=== PATIENT | female | born 1955 | race Caucasian/White ===

== ENCOUNTER 2023-01-22 12:56 | Outpatient (OUT) | payer MEDICARE, OTHER, SELFPAY ==
--- NOTE | 2023-01-22 13:01 | MM_ITS ---
Patient Name: OSORIO ANN MR#: [id number] : 1955 Exam Date: 01/22/2023 Ordering Doctor: FELISHA CASILLAS RADIOLOGY REPORT PROCEDURE: MM TOMOSYNTHESIS SCREENING BI COMPARISON: MG MAMM SCREEN 3D JORGE CAD, 09/13/2020. MG MAMM SCREEN JORGE W CAD, 12/26/2017. MG MAMM SCREEN JORGE W CAD, 12/03/2016. MG MAMM SCREEN JORGE W CAD, 01/01/2013. INDICATIONS: Screening Calculator Name NCI Breast Cancer Risk Assessment Tool 5 Year Breast Cancer Risk 2.20% Lifetime Breast Cancer Risk 7.20% Personal Breast Cancer No Personal Ovarian Cancer No Treatments None Family Cancers None LOCATION: [facility] BREAST COMPOSITION: Heterogeneously dense,which may obscure small masses. FINDINGS: DIAGNOSTIC CATEGORY 2--BENIGN FINDING: RIGHT BREAST: No significant suspicious finding. Scattered benign-appearing calcifications are present. No significant change has occurred. LEFT BREAST: No significant suspicious finding. Scattered benign-appearing calcifications are present. No significant change has occurred. RECOMMENDATIONS: ROUTINE MAMMOGRAM AND CLINICAL EVALUATION IN 12 MONTHS. PLEASE NOTE: A NORMAL MAMMOGRAM DOES NOT EXCLUDE THE POSSIBILITY OF BREAST CANCER. A CLINICALLY SUSPICIOUS PALPABLE LUMP SHOULD BE BIOPSIED. Dictated by: Jorje Chacko M.D. on 01/24/2023 at 12:09 Approved by: Jorje Chacko M.D. on 01/24/2023 at 12:13
== END 2023-01-22 12:57 | disposition home or self-care (01) ==
LOC: MAMMO 12:56
PROVIDERS: PCP Student in an Organized Health Care Education/Training Program
DX: Z12.31 Encounter for screening mammogram for malignant neoplasm of breast (principal)
CPT/HCPCS: 77063; 77067

== ENCOUNTER 2024-06-24 08:05 | Outpatient (OUT) | payer MEDICARE, OTHER, SELFPAY ==
[2024-06-24 08:27] LABS: Basophils Percent Auto 0.5 % (0.2-2.0); Eosinophils Absolute Auto 0.1 10^3/uL (0.0-0.7); Eosinophils Percent Auto 1.1 % (0.9-7.0); Hematocrit 38.9 % (36.0-48.0); Hemoglobin 12.8 g/dL (12.0-16.0); Immature Granulocytes Abs Auto 0.01 10^3/uL (0.00-0.03); Immature Granulocytes Pct Auto 0.2 % (0.0-0.5); Lymphocytes Absolute Auto 1.7 10^3/uL (1.2-3.8); Lymphocytes Percent Auto 30.8 % (20.5-60.0); Mean Corpuscular HGB Conc 32.9 g/dL (29.9-35.2); Mean Corpuscular Hemoglobin 31.4 pg (26.7-34.0); Mean Corpuscular Volume 95.3 fL (81.0-99.0); Mean Platelet Volume 10.6 fL (9.5-13.5); Monocytes Absolute Auto 0.4 10^3/uL (0.3-0.8); Monocytes Percent Auto 6.8 % (1.7-12.0); Neutrophils Absolute Auto 3.4 10^3/uL (1.4-6.5); Neutrophils Percent Auto 60.6 % (43.0-75.0); Platelet Count 269 10^3/uL (150-450); Red Blood Count 4.08 10^6/uL (4.20-5.40); Red Cell Distribution Width 12.3 % (11.0-15.0); White Blood Count 5.6 10^3/uL (4.0-11.0)
[2024-06-24 08:57] LABS: Anion Gap 12.7; BUN Creatinine Ratio 12.5; Calcium 8.8 mg/dL (8.5-10.1); Carbon Dioxide 29.4 mmol/L (21.0-32.0); Chloride 106 mmol/L (98-107); Estimated GFR (African America >60 (>=60 mL/min/1.73m^2); Estimated GFR (Non-African Ame >60 (>=60 mL/min/1.73m^2); Glucose 106 mg/dL (74-106); Potassium 4.1 mmol/L (3.5-5.1); Sodium 144 mmol/L (136-145)
== END 2024-06-24 08:06 | disposition home or self-care (01) ==
PROVIDERS: PCP Student in an Organized Health Care Education/Training Program
DX: K62.9 Disease of anus and rectum, unspecified (principal)
CPT/HCPCS: 36415; 80048; 85025

== ENCOUNTER 2024-10-19 07:57 | Outpatient (OUT) | payer MEDICARE, OTHER, SELFPAY ==
--- OUTSIDE RECORDS SUMMARY | 2024-10-19 07:59 | XMS_ITS | Clinical Summary ---
Author Organization [facility] Address [address] [place] [address] Care Team Providers Care Health Communications Specialist Name Role Phone Ellen Barrett MD Primary Care Provider [phone] Ellen Barrett MD Unavailable [phone] Allergies Active Allergy Reactions Criticality Noted Date Comments Amoxicillin Diarrhea 12/26/2022 Aspirin 12/26/2022 Cefuroxime 12/26/2022 Other Reaction(s): Unknown Erythromycin Headache 12/26/2022 Lactose Intolerance (Gi) 12/26/2022 Other Reaction(s): Sensitivity Meperidine 12/26/2022 Midazolam 12/26/2022 Other 12/26/2022 Other Reaction(s): Sensitivity Medications predniSONE (Deltasone) 20 MG tabletIndicatio ns:Rib pain on right side 3 tablets for 3 days, then 2 tablets for 3 days, then 1 tablet for 3 days then stop 18 tablet 09/15/2024 Active tiZANidine (Zanaflex) 4 MG tabletIndicatio ns:Rib pain on right side Take 1 tablet (4 mg) by mouth every 8 (eight) hours if needed for muscle spasms 20 tablet 09/15/2024 Active sulfamethoxazol e-trimethoprim (Bactrim DS) 800-160 MG per tabletIndicatio ns:Positive urine culture Take 1 tablet by mouth in the morning and 1 tablet before bedtime. Do all this for 7 days. 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 12/26/2022 Post-void dribbling 12/26/2022 Encounters Date Type Department Care Team Description 09/22/2024 Results Follow-Up [place] [address] [place] [address] Lorena Trevino NP CBC and differential, Comprehensive metabolic panel, Urinalysis with microscopic (reflex culture if indicated), Additional followed-up results: 5 09/15/2024 12:40 PM EDT Office Visit [place] [address] [place] [address] Lorena Trevino NP Medicare annual wellness visit, subsequent (Primary Dx); Elevated blood pressure reading in office without diagnosis of hypertension; Right sided abdominal pain; Rib pain on right side; Other fatigue; Chills (without fever); Other problems related to lifestyle; BMI 29.0-29.9,adult; Overweight 09/15/2024 Bamboo flowsheet [place] [address] [place] [address] Lorena Trevino NP 09/15/2024 Travel from Last 3 Months Immunizations Immunization Administration Dates Next Due SARS-CoV-2, Unspecified 05/25/2021 Tdap 09/28/2018 Family History Medical History Relation Name Comments Fibromyalgia Brother Heart disease Father Hypertension Father Hypertension Mother Relation Name Status Comments Brother 1 brother Father Mother Social History Tobacco Use Types Packs/Day Years Used Date Smoking Tobacco: Never Smokeless Tobacco: Never Tobacco Cessation:Counseling Given: Not Answered Alcohol Use Standard Drinks/Week Comments Not Currently 0 (1 standard drink = 0.6 oz pur e alcohol) PHQ-2 Answer Date Recorded Patient Health Questionnaire-2 Score 0 09/15/2024 Comments No Sex and Gender Information Value Date Recorded Sex Assigned at Not on file Legal Sex Female 6:36 PM EDT Gender Identity Not on file Sexual Orientation Not on file Last Filed Vital Signs Vital Sign Reading Time Taken Comments Blood Pressure 150/80 09/15/2024 12:52 PM EDT Pulse 65 09/15/2024 12:52 PM EDT Temperature 37.1 C (98.7 F) 09/15/2024 12:52 PM EDT Respiratory Rate - - Oxygen Saturation 98% 09/15/2024 12:52 PM EDT Inhaled Oxygen Concentration - - Weight 77.6 kg (171 lb) 09/15/2024 12:52 PM EDT Height 162.6 cm (5' 4 ) 09/15/2024 12:52 PM EDT Body Mass Index 29.35 09/15/2024 12:52 PM EDT Plan of Treatment Health Maintenance Due Date Last Done Comments CT Colonography 1955 FIT 1955 FOBT 1955 Sigmoidoscopy 1955 Pneumococcal Vaccine: 65+ Ye ars (1 of 1 - PCV) 2004 Mammogram 01/25/2024 01/24/2023, 08/26, 12/26/2017, Additional history exists Influenza Vaccine (#1) 2024 Medicare Annual Wellness (AWV) 09/15/2025 0 09/15/2024, 12/26/2022, 12/19/2021, Additional history exists FIT-DNA 03/26/2027 03/26/2024, 10/26, 11/08/2020 Colonoscopy 07/21/2034 07/21/2024, 04/26, 05/15/2024, Additional history exists Colorectal Cancer Screening 07/21/2034 Procedures Procedure Name Priority Date/Time Associated Diagnosis Comments HCV NEG INTERP REFLEX Routine 09/15/2024 1:33 PM EDT URINE CULTURE, ROUTINE, REFLEX Routine 09/15/2024 1:33 PM EDT UR MICROSCOPIC REFLEX Routine 09/15/2024 1:33 PM EDT HCV ANTIBODY RFX TO QUANT PCR Routine 09/15/2024 1:33 PM EDT Other problems related to lifestyle LIPASE Routine 09/15/2024 1:33 PM EDT Right sided abdominal pain URINALYSIS WITH MICROSCOPIC (REFLEX CULTURE IF INDICATED) Routine 09/15/2024 1:33 PM EDT Right sided abdominal pain Other fatigue Chills (without fever) COMPREHENSIVE METABOLIC PANEL Routine 09/15/2024 1:33 PM EDT Right sided abdominal pain Other fatigue Chills (without fever) CBC (INCLUDES DIFF/PLT) Routine 09/15/2024 1:33 PM EDT Right sided abdominal pain Other fatigue Chills (without fever) HM COLONOSCOPY Routine 05/15/2024 4:18 PM EDT LAB COLOGUARD COLON CANCER SCREEN Routine 03/26/2024 9:00 AM EST Screening for colon cancer BI MAMMOGRAM SCREENING TOMOSYNTHESIS BILATERAL Routine 01/24/2023 4:44 PM EST Breast cancer screening by mammogram from Last 3 Months or Most Recently Relevant to Health Maintenance Results * (ABNORMAL) Ur Microscopic Reflex (09/15/2024 1:33 PM EDT) WBC Ur 6-10(A) 0 - 5 /hpf [facility] RBC Ur None seen 0 - 2 /hpf [facility] Epithelial Cells (non renal) Ur 0-10 0 - 10 /hpf [facility] Casts Ur None seen None seen /lpf [facility] Crystals Ur Present(A) N/A [facility] Crystal Type Ur Calcium Oxalate N/A [facility] Bacteria Ur None seen None seen/Few [facility] 09/15/2024 1:33 PM EDT 09/15/2024 Narrative [facility] - 09/20/2024 8:35 AM EDT Performed at: [address] [place] [id number] Drug And Alcohol Treatment Specialist: Franco Toribio PhD, Phone: [phone] Lorena A DonAlterGeoarmandor NUCLEAR POWERPLANT SUPERVISOR LAB URINE ORDERABLES Fi nal Result Performing Organization Address City/[facility] Co de Phone Number [facility] * HCV Neg Interp Reflex (09/15/2024 1:33 PM EDT) HCV Neg Interp Comment [facility] Comment: Not infected with HCV unless early or acute infection is suspected (which may be delayed in an immunocompromised individual), or other evidence exists to indicate HCV infection. 09/15/2024 1:33 PM EDT 09/15/2024 Narrative [facility] - 09/20/2024 8:35 AM EDT Performed at: [address] [place] [id number] Drug And Alcohol Treatment Specialist: Franco Toribio PhD, Phone: [phone] Lorenasurekha Trevino NUCLEAR POWERPLANT SUPERVISOR LAB BLOOD ORDERABLES Fi nal Result Performing Organization Address [facility] Co de Phone Number [facility] * (ABNORMAL) Urine Culture, Routine, Reflex (09/15/2024 1:33 PM EDT) Urine Cult Rt Status Final report(A) [facility] Ur Cult 1 Klebsiella pneumoniae(A) [facility] Comment: Cefazolin with an DUANE <=16 predicts susceptibility to the oral agents cefaclor, cefdinir, cefpodoxime, cefprozil, cefuroxime, cephalexin, and loracarbef when used for therapy of uncomplicated urinary tract infections due to E. coli, Klebsiella pneumoniae, and Proteus mirabilis. Greater than 100,000 colony forming units per mL Ur Cult Suscep Comment [facility] Comment: S = Susceptible; I = Intermediate; R = Resistant P = Positive; N = Negative MICS are expressed in micrograms per mL Antibiotic RSLT#1 RSLT#2 RSLT#3 RSLT#4 Amoxicillin/Clavulanic Acid S Ampicillin R Cefazolin S Cefepime S Cefoxitin S Cefpodoxime S Ceftriaxone S Ciprofloxacin S Ertapenem S Gentamicin S Levofloxacin S Meropenem S Nitrofurantoin S Piperacillin/Tazobactam S Tetracycline R Tobramycin S Trimethoprim/Sulfa S 09/15/2024 1:33 PM EDT 09/15/2024 Narrative [facility] - 09/20/2024 8:35 AM EDT Performed at: [address] [place] [id number] Drug And Alcohol Treatment Specialist: Franco Toribio PhD, Phone: [phone] Lorena Trevino NUCLEAR POWERPLANT SUPERVISOR LAB URINE ORDERABLES Fi nal Result Performing Organization Address [facility] Co de Phone Number [facility] * Urinalysis with microscopic (reflex culture if indicated) (09/15/2024 1:33 PM EDT) Pathologist [facility] Specific [place] Urine 1.022 1.005 - 1.030 [facility] pH Urine 6.5 5.0 - 7.5 [facility] Color Urine Yellow Yellow [facility] Appearance Urine Clear Clear [facility] WBC Esterase Urine Negative Negative [facility] Protein Urine Trace Negative/Tra ce [facility] Glucose Urine Negative Negative [facility] Ketones Urine Negative Negative [facility] Occult Blood Urine Negative Negative [facility] Bilirubin Urine Negative Negative [facility] Urobilinogen,Se mi-Qn Urine 0.2 0.2 - 1.0 mg/dL [facility] Nitrite Urine Negative Negative [facility] Ur Microscopic Comment [facility] Comment:Microscopic follows if indicated. Micro Exam See below: [facility] Comment:Microscopic was sukhjinder cated and was performed. Urinalysis Reflex Comment [facility] Comment:This specimen has re flexed to a Urine Culture. Urine Urine specimen obtained by clean catch procedure / Unknown 09/15/2024 1:33 PM EDT 09/15/2024 Narrative [facility] - 09/20/2024 8:35 AM EDT Performed at: [address] [place] [id number] Drug And Alcohol Treatment Specialist: Franco Toribio PhD, Phone: [phone] Lorena Trevino NUCLEAR POWERPLANT SUPERVISOR LAB URINE ORDERABLES Fi nal Result [facility] * Hcv antibody rfx to quant pcr (09/15/2024 1:33 PM EDT) Pathologist [facility] HCV Ab Non Reactive Non Reactive [facility] Blood Venous blood specimen / Unknown 09/15/2024 1:33 PM EDT 09/15/2024 Narrative [facility] - 09/20/2024 8:35 AM EDT Performed at: 01 - [facility] [id number] Drug And Alcohol Treatment Specialist: Franco Toribio PhD, Phone: [phone] Lorena Trevino NUCLEAR POWERPLANT SUPERVISOR LAB BLOOD ORDERABLES Fi nal Result [facility] * (ABNORMAL) CBC and differential (09/15/2024 1:33 PM EDT) [facility] WBC 6.9 3.4 - 10.8 x10E3/uL [facility] RBC 3.96 3.77 - 5.28 x10E6/uL [facility] Hgb 13.3 11.1 - 15.9 g/dL [facility] Hct 39.2 34.0 - 46.6 % [facility] MCV 99(H) 79 - 97 fL [facility] MCH 33.6(H) 26.6 - 33.0 pg [facility] MCHC 33.9 31.5 - 35.7 g/dL [facility] RDW 12.9 11.7 - 15.4 % [facility] Platelets 272 150 - 450 x10E3/uL [facility] Neutrophils 65 Not Estab. % [facility] Lymphs 27 Not Estab. % [facility] Monocytes 7 Not Estab. % [facility] Eos 1 Not Estab. % [facility] Basos 0 Not Estab. % [facility] Neutrophils Abs 4.5 1.4 - 7.0 x10E3/uL [facility] Lymphs Abs 1.9 0.7 - 3.1 x10E3/uL [facility] MonocytesAbs 0.5 0.1 - 0.9 x10E3/uL [facility] Eos Abs 0.1 0.0 - 0.4 x10E3/uL [facility] Baso Abs 0.0 0.0 - 0.2 x10E3/uL [facility] Immature Granulocytes 0 Not Estab. % [facility] Immature Grans Abs 0.0 0.0 - 0.1 x10E3/uL [facility] Blood Venous blood specimen / Unknown 09/15/2024 1:33 PM EDT 09/15/2024 Narrative [facility] - 09/20/2024 8:35 AM EDT Performed at: [address] [place] [id number] Drug And Alcohol Treatment Specialist: Franco Toribio PhD, Phone: [phone] Lorena Kevin Trevino LAB BLOOD ORDERABLES Fi nal Result Performing Organization Address [facility] de Phone Number [facility] * Lipase (09/15/2024 1:33 PM EDT) Pathologist [facility] LIPASE 45 14 - 72 U/L [facility] Blood Venous blood specimen / Unknown 09/15/2024 1:33 PM EDT 09/15/2024 Narrative [facility] - 09/20/2024 8:35 AM EDT Performed at: [address] [place] [id number] Drug And Alcohol Treatment Specialist: Franco Toribio PhD, Phone: [phone] Lorena Trevino NUCLEAR POWERPLANT SUPERVISOR LAB BLOOD ORDERABLES Fi nal Result Performing Organization Address [facility] Co de Phone Number [facility] * (ABNORMAL) Comprehensive metabolic panel (09/15/2024 1:33 PM EDT) Glucose CANCELED mg/dL [facility] Comment: Test not performed. Serum was in contact with cells when received which will make the result inaccurate. Result canceled by the ancillary. BUN 13 8 - 27 mg/dL [facility] Creat 0.77 0.57 - 1.00 mg/dL [facility] EGFR 83 >59 mL/min/1.7 3 [facility] BUN/Creat Ratio 17 12 - 28 [facility] Sodium 144 134 - 144 mmol/L [facility] Potassium CANCELED mmol/L [facility] Comment: Test not performed. Serum was in contact with cells when received which will make the result inaccurate. Result canceled by the ancillary. Chloride 103 96 - 106 mmol/L [facility] Carbon Dioxide 19(L) 20 - 29 mmol/L [facility] Calcium 9.6 8.7 - 10.3 mg/dL [facility] Protein Total 6.9 6.0 - 8.5 g/dL [facility] Albumin 4.5 3.9 - 4.9 g/dL [facility] Globulin Total 2.4 1.5 - 4.5 g/dL [facility] Bili Total 0.3 0.0 - 1.2 mg/dL [facility] Alk Phosphatase 85 44 - 121 IU/L [facility] AST 18 0 - 40 IU/L [facility] ALT 14 0 - 32 IU/L [facility] Blood Venous blood specimen / Unknown 09/15/2024 1:33 PM EDT 09/15/2024 Narrative [facility] - 09/20/2024 8:35 AM EDT Performed at: 01 - [address] [id number] Drug And Alcohol Treatment Specialist: Franco Toribio PhD, Phone: [phone] Lorena Trevino NUCLEAR POWERPLANT SUPERVISOR LAB BLOOD ORDERABLES Ed ited Result - Final [facility] * Hm Colonoscopy (05/15/2024 4:18 PM EDT) Anatomical Region Laterality Modality Other Jackson Hughes MD HEALTH MAINTENANCE Final Result * (ABNORMAL) Cologuard?? colon cancer screening (03/26/2024 9:00 AM EST) NONINV COLON CA DNA+OCC BLD SCRN STL-IMP Positive( A) Negative 04/01/2024 8:58 PM EST [facility] (CLIA #:[id number]) Comment: POSITIVE TEST RESULT. A positive Cologuard result should be followed with a colonoscopy or visual examination of the colon. The normal value (reference range) for this assay is negative. TEST DESCRIPTION: Composite algorithmic analysis of stool DNA-biomarkers with hemoglobin immunoassay. Quantitative values of individual biomarkers are not reportable and are not associated with individual biomarker result reference ranges. Cologuard is intended for colorectal cancer screening of adults of either sex, 45 years or older, who are at average-risk for colorectal cancer (CRC). Cologuard has been approved for use by the U.S. FDA. The performance of Cologuard was established in a cross sectional study of average-risk adults aged 50-84. Cologuard performance in patients ages 45 to 49 years was estimated by sub-group analysis of near-age groups. Colonoscopies performed for a positive result may find as the most clinically significant lesion: colorectal cancer [4.0%], advanced adenoma (including sessile serrated polyps greater than or equal to 1cm diameter) [20%] or non- advanced adenoma [31%]; or no colorectal neoplasia [45%]. These estimates are derived from a prospective cross-sectional screening study of 10,000 individuals at average risk for colorectal cancer who were screened with both Cologuard and colonoscopy. (Christopher Harvey et al, N Engl J Med 2014;370(14):1287-4060.) Cologuard may produce a false negative or false positive result (no colorectal cancer or precancerous polyp present at colonoscopy follow up). A negative Cologuard test result does not guarantee the absence of CRC or advanced adenoma (pre-cancer). The current Cologuard screening interval is every 3 years. ([place] [employer] Society and U.S. Multi-Society Task Force). Cologuard performance data in a 10,000 patient pivotal study using colonoscopy as the reference method can be accessed at the following location: www.FanBoom.Slurp.co.uk/results. Additional description of the Cologuard test process, warnings and precautions can be found at www.Womenalia.com.Slurp.co.uk. Stool specimen (specimen) 03/26/2024 9:00 AM EST 03/27/2024 10:48 AM EST us Ellen Barrett MD LAB MOLECULAR DIAGNOSTICS ORD ERABLES Final Result [facility] (CLIA #:[id number]) [place] [address] [place] [address], [place] [phone] * Bilateral screening mammogram with tomosynthesis (01/24/2023 4:44 PM EST) us Ellen Barrett MD IMG BI PROCEDURES Final Resul t from Last 3 Months or Most Recently Relevant to Health Maintenance Insurance [employer] [place] Care Teams Health Communications Specialist Relationship Specialty Start Date End Date Ellen Barrett MD [address] [place] [address] PCP - General Family Medicine 07/03/22 Ellen Barrett MD [address] [place] [address] PCP - ACO Reach 04/03/24
--- OUTSIDE RECORDS SUMMARY | 2024-10-19 07:59 | XMS_ITS | Encounter Summary ---
Author Organization [facility] [employer] [facility] [employer] Address [id number] [address] [place] [address] Care Team Providers Care Review Manager Name Role Phone Unavailable Primary Care Provider Unavailabl e Encounter Details Date Type Department Care Team (Late st Contact Info) Description 05/29/2024 Orders Only [facility] [address] [place] [address] External, Scanning Provider Social History Tobacco Use Types Packs/Day Years Used Date Smoking Tobacco: Never Assessed Comments Unknown Sex and Gender Information Value Date Recorded Sex Assigned at Not on file Legal Sex Female 5:02 PM EDT Gender Identity Not on file Sexual Orientation Not on file documented as of this encounter Plan of Treatment Not on file documented as of this encounter Procedures Procedure Name Priority Date/Time Associated Diagnosis Comments COLONOSCOPY Routine 05/15/2024 SURGICAL PATHOLOGY Routine 05/15/2024 documented in this encounter Results * Colonoscopy (05/15/2024) us Scanning Provider External GI PROCEDURE ORDERABL ES Final Result Performing Organization Address [facility] Co de Phone Number MANUALLY TRANSCRIBED RESULTS * Surgical Pathology (05/15/2024) 05/15/2024 us Scanning Provider External PATHOLOGY/CYTOLOGY OR DERABLES Final Result Performing Organization Address [facility] Co de Phone Number MANUALLY TRANSCRIBED RESULTS documented in this encounter Visit Diagnoses Not on filedocumented in this encounter
--- OUTSIDE RECORDS SUMMARY | 2024-10-19 07:59 | XMS_ITS | Encounter Summary ---
Author Organization [facility] Address [address] [place] [address] Care Team Providers Care Sand Tester Name Role Phone Meghann Chung MD Unavailable Ellen Barrett MD Primary Care Provider [phone] Ellen Barrett MD Unavailable [phone] Encounter Details Date Type Department Care Team (Late st Contact Info) Description 12/28/2022 Orders Only [facility] [address] [place] [address] Ellen Barrett MD [address] [place] [address] Social History Tobacco Use Types Packs/Day Years Used Date Smoking Tobacco: Never Smokeless Tobacco: Never Alcohol Use Standard Drinks/Week Comments Not Currently 0 (1 standard drink = 0.6 oz pur e alcohol) Comments Unknown Sex and Gender Information Value Date Recorded Sex Assigned at Not on file Legal Sex Female 6:36 PM EDT Gender Identity Not on file Sexual Orientation Not on file documented as of this encounter Plan of Treatment Not on file documented as of this encounter Procedures Procedure Name Priority Date/Time Associated Diagnosis Comments MISCELLANEOUS LAB TEST Routine 08/29/2022 11:07 AM EDT documented in this encounter Results * - Miscellaneous Test (08/29/2022 11:07 AM EDT) us Ellen Barrett MD LAB BLOOD ORDERABLES Final Re sult documented in this encounter Visit Diagnoses Not on filedocumented in this encounter Additional Health Concerns Assessment Noted Time PHQ-9 Depression Total Score: 0 11/01/20 23 8:00 AM EDT documented as of this encounter Care Teams Sand Tester Relationship Specialty Start Date End Date Meghann Chung MD [address] [place] [address] PCP - ACO Reach 07/19/22 04/02/24 Ellen Barrett MD [address] [place] [address] PCP - General Family Medicine 07/03/22 Ellen Barrett MD [address] [place] [address] PCP - ACO Reach 04/03/24 documented as of this encounter
--- OUTSIDE RECORDS SUMMARY | 2024-10-19 07:59 | XMS_ITS | Encounter Summary ---
Author Organization [facility] Address [facility] [id number] [address] [place] [address] Care Team Providers Care Data Science And Iot Manager Name Role Phone Unavailable Primary Care Provider Unavailabl e Encounter Details Date Type Department Care Team (Late st Contact Info) Description 05/28/2024 Orders Only [facility] [employer] [address] [place] [phone] External, Scanning Provider Pain (Primary Dx) Social History Tobacco Use Types Packs/Day Years Used Date Smoking Tobacco: Never Assessed Comments Unknown Sex and Gender Information Value Date Recorded Sex Assigned at Not on file Legal Sex Female 5:02 PM EDT Gender Identity Not on file Sexual Orientation Not on file documented as of this encounter Plan of Treatment Not on file documented as of this encounter Results * CT abdomen and pelvis without contrast (08/19/2020 1:00 PM EDT) us Scanning Provider External IMG CT ORDERABLES Fin al Result documented in this encounter Visit Diagnoses Diagnosis Pain- Primary Generalized pain documented in this encounter
--- OUTSIDE RECORDS SUMMARY | 2024-10-19 07:59 | XMS_ITS | Clinical Summary ---
Author Organization [employer] 2000 [facility] tem Address [id number] [address] [place] [address] Care Team Providers Care Air Transportation Provider Name Role Phone Unavailable Primary Care Provider Unavailabl e Allergies Active Allergy Reactions Criticality Noted Date Comments Amoxicillin 06/23/2024 Aspirin Headache 12/26/2022 Cefuroxime Other (See Comments) 12/26/2022 Other Reaction(s): Unknown Meperidine 06/23/2024 Egg Other (See Comments) 07/14/2024 Erythromycin Headache 12/26/2022 Milk Containing Products (Dairy) Other (See Comments) 07/14/2024 Nut - Unspecified 07/14/2024 Midazolam Nausea 06/23/2024 Medications No known medications Active Problems Problem Noted Date Diagnosed Date Rectal polyp 07/20/2024 Encounters Date Type Department Care Team Description 07/30/2024 Telephone [facility] [address] [place] [address] Shaw Quezada MD 07/21/2024 11:00 AM EDT - 07/21/2024 12:15 PM EDT Surgery [facility] Endoscopy [address] [place] [address] Jason Graham MD COLONOSCOPY ENDOSCOPIC MUCOSAL RESECTION [53523 (CPT )] 07/21/2024 9:54 AM EDT Anesthesia Event [facility] Endoscopy [address] [place] [id number] Sj Monk 07/21/2024 8:54 AM EDT - 07/21/2024 11:22 AM EDT Hospital Encounter [facility] Surgery [address] [facility] [address] Jason Graham MD Discharge Disposition: Home 07/21/2024 Travel from Last 3 Months Social History Tobacco Use Types Packs/Day Years Used Date Smoking Tobacco: Never Smokeless Tobacco: Never Tobacco Cessation:Counseling Given: No Alcohol Use Standard Drinks/Week Comments Never 0 (1 standard drink = 0.6 oz pur e alcohol) Hunger Screening Answer Date Recorded Within the past 12 months we worried whether our food would run out before we got money to buy more. Never True 07/14/2024 Within the past 12 months th e food we bought just didn't last and we didn't have money to get more. Never True 07/14/2024 Comments No Sex and Gender Information Value Date Recorded Sex Assigned at Not on file Legal Sex Female 5:02 PM EDT Gender Identity Not on file Sexual Orientation Not on file Last Filed Vital Signs Vital Sign Reading Time Taken Comments Blood Pressure 130/58 07/21/2024 11:00 AM EDT Pulse 60 07/21/2024 11:00 AM EDT Temperature 36.1 C (97 F) 07/21/2024 11:00 AM EDT Respiratory Rate 19 07/21/2024 11:00 AM EDT Oxygen Saturation 100% 07/21/2024 11:00 AM EDT Inhaled Oxygen Concentration - - Weight 78 kg (172 lb) 07/14/2024 9:00 AM EDT Height 162.6 cm (5' 4 ) 07/14/2024 9:00 AM EDT Body Mass Index 29.52 07/14/2024 9:00 AM EDT Plan of Treatment Health Maintenance Due Date Last Done Comments Depression Screening 1966 Adult BMI Follow Up Plan 1972 Zoster (Shingles) Vaccine (1 of 2) 2004 Fall Risk Screening 2019 COVID-19 Vaccine (2023-2 5 season) 2024 11/18/2023, 12/25/2022, 11/06/2021, Additional history exists Influenza Vaccine 10/26/2024 Adult BMI Screening 07/14/2025 07/14/2024 Tobacco Screening 07/21/2025 07/21/2024 DTaP,Tdap and Td Vaccines (2 - Td or Tdap) 09/28/2028 09/28/2018 Medical Devices Not on file Procedures Procedure Name Priority Date/Time Associated Diagnosis Comments SURGICAL PATHOLOGY Routine 07/21/2024 10 :10 AM EDT TX COLONOSCOPY FLX W/ENDOSCOPIC MUCOSAL RESECTION 07/21/2024 9:39 AM EDT RECTAL LEGION COLONOSCOPY 07/21/2024 9:28 AM EDT PROVATION COLONOSCOPY Routine 07/21/2024 9:28 AM EDT from Last 3 Months Results * Surgical Pathology (07/21/2024 10:10 AM EDT) Case Report Surgical Pathology Report Case: [id number] Authorizing Provider: Jason Graham MD Collected: 07/21/2024 1010 Ordering Location: [facility] Received: 07/21/2024 1145 - Endoscopy Pathologist: Anthony Nettles MD Specimens: 1) - Colon, TRANSVERSE POLYP(EMR) 2) - Colon, RECTAL/SIGMOI D POLYP(EMR) 07/29/2024 2:29 PM EDT [facility] Final Diagnosis 1. Transverse colon polyp; EMR: Sessile serrated lesion; no dysplasia. Sessile serrated changes focally extends to one lateral cauterized inked resection margin. 2. Rectal sigmoid polyp; EMR: Tubular adenoma (4 fragments, including the largest 1.2 cm), with background changes suggestive of arising in a sessile serrated lesion. Adenomatous changes focally extends to the cauterized base margin in the largest fragment. No high-grade dysplasia. 07/29/2024 2:29 PM EDT [facility] at 1429 EDT Gross Description 1. Received in formalin labeled DOBYNS, #1: Transverse polyp (EMR) is a single schmitt polypoid fragment of soft tissue, ranging from 0.8 x 0.5 x 0.2 cm in greatest dimension. The polyp is inked teal at the surgical margin, bisected and submitted in a single cassette. (1, ns, [id number], m6.1) MG 2. Received in formalin labeled MARISSA, #2: Rectal sigmoid polyp (EMR) is a single schmitt polypoid fragment of soft tissue, 1.2 x 1.0 x 0.5 cm. The polyp is inked teal at the surgical margin, serially sectioned and submitted in cassette A. Also received in the container are 4 schmitt bits/strips of soft tissue, ranging from 0.1-0.7 cm in greatest dimension, which are filtered and submitted in cassette B. (2, ns, [id number], m6.1) MG 07/29/2024 2:29 PM EDT [facility] Embedded Images 07/29/2024 2:29 PM EDT [facility] Tissue Colon structure / Unknown 07/21/2024 10:10 AM EDT 07/21/2024 11:45 AM EDT Comment:Pre-op diagnosis: RECTAL LEGION Tissue specimen (specimen) Colon structure / Unknown 07/21/2024 10:21 AM EDT 07/21/2024 11:45 AM EDT Comment:Pre-op diagnosis: RECTAL LEGION Jason Graham MD PATHOLOGY/CYTOLOGY ORDERABLE S Final Result [facility] [address] [place] [id number], * Colonoscopy (07/21/2024 9:28 AM EDT) 07/21/2024 9:28 AM EDT Narrative PM CARDIOVASCULAR - 07/21/2024 11:55 AM EDT [facility] Patient Name: Nan Montes De Oca Procedure Date: 07/21/2024 9:28 AM CSN: [id number] Date of : 1955 Admit Type: Outpatient Age: 69 Room: [place] [address] Gender: Female Note Status: Finalized Attending MD: JASON GRAHAM MD, Procedure: Colonoscopy Indications: For therapy of adenomatous polyps in the colon Providers: JASON GRAHAM MD, Shaw Quezada (Fellow) Referring MD: Requesting Provider: Medicines: Monitored Anesthesia Care Complications: No immediate complications. Procedure: After I obtained informed consent, the scope was passed under direct vision. Throughout the procedure, the patient's blood pressure, pulse, and oxygen saturations were monitored continuously. The Colonoscope was introduced through the anus and advanced to the cecum, identified by appendiceal orifice and ileocecal valve. The colonoscopy was performed without difficulty. The patient tolerated the procedure well. The quality of the bowel preparation was good. ATTESTATION: I was present for the entire procedure from time-out until withdrawal of the scope. Findings: The perianal and digital rectal examinations were normal. A 6 mm polyp was found in the transverse colon. The polyp was flat. Preparations were made for mucosal resection. Eleview was injected to raise the lesion. Snare mucosal resection was performed. En Bloc resection was done. Resection and retrieval were complete. Resected tissue margins were examined and clear of polyp tissue. Coagulation with the snare tip for the edges of the polypectomy site was done successfully . To prevent bleeding after mucosal resection, two hemostatic clips were successfully placed. Clip naturalization examiner: [employer]. There was no bleeding at the end of the procedure. A 20 mm polyp was found in the recto-sigmoid colon. The polyp was sessile. Preparations were made for mucosal resection. Eleview was injected to raise the lesion. Snare mucosal resection was performed. The polyp was removed in piecemeal fashion. Resection and retrieval were complete. Resected tissue margins were examined and clear of polyp tissue. Coagulation for destruction of remaining portion of lesion using snare was successful. To prevent bleeding after mucosal resection, two hemostatic clips were successfully placed. One Mantis clip and 1 [employer] 360 clip. There was no bleeding at the end of the procedure. A few small-mouthed diverticula were found in the sigmoid colon. Internal hemorrhoids were found during retroflexion. The hemorrhoids were small. Estimated Blood Loss: Estimated blood loss was minimal. Impression: - One 6 mm polyp in the transverse colon, removed with en-bloc hot EMR. Resected and retrieved. Treated with a hot snare. Clips were placed. Clip naturalization examiner: [employer]. - One 20 mm polyp at the recto-sigmoid colon, removed with piecemeal hot EMR. Resected and retrieved. Treated with a hot snare. Clips were placed. Clip naturalization examiner: [employer] and [employer]. - Diverticulosis in the sigmoid colon. - Internal hemorrhoids. Recommendation: - Patient has a contact number available for emergencies. The signs and symptoms of potential delayed complications were discussed with the patient. Return to normal activities tomorrow. Written discharge instructions were provided to the patient. - Discharge patient to home. - Resume regular diet. - Cipro (ciprofloxacin) 500 mg PO BID for 5 days. - Await pathology results. - Repeat colonoscopy in 6 months to review the polypectomy site. At that time, we will also arrange for EGD for the evaluation of heartburn and dysphagia. Procedure Code(s): --- Professional --- 56426, Colonoscopy, flexible; with endoscopic mucosal resection Diagnosis Code(s): --- Professional --- D12.3, Benign neoplasm of transverse colon (hepatic flexure or splenic flexure) D12.7, Benign neoplasm of rectosigmoid junction K64.8, Other hemorrhoids D12.6, Benign neoplasm of colon, unspecified K57.30, Diverticulosis of large intestine without perforation or abscess without bleeding CPT copyright 2022 [employer]. All rights reserved. The codes documented in this report are preliminary and upon puppy walker review may be revised to meet current compliance requirements. Dr. Jason GRAHAM MD 07/21/2024 11:55:10 AM This report has been signed electronically. Shaw Quezada, Number of Addenda: 0 Note Initiated On: 07/21/2024 9:28 AM Procedure Note Jason Graham MD - 07/21/2024 [facility] Patient Name: Nan Montes De Oca Procedure Date: 07/21/2024 9:28 AM CSN: [id number] Date of : 1955 Admit Type: Outpatient Age: 69 Room: [place] [address] Gender: Female Note Status: Finalized Attending MD: JASON GRAHAM MD, Procedure: Colonoscopy Indications: For therapy of adenomatous polyps in [facility] Providers: JASON GRAHAM MD, Shaw Quezada(Fellow) Referring MD: Requesting Provider: Medicines: Monitored Anesthesia Care Complications: No immediate complications. Procedure: After I obtained informed consent, the scope was passed under direct vision. Throughoutthe procedure, the patient's blood pressure,pulse, and oxygen saturations were monitored continuously. The Colonoscope was introduced through the anus and advanced to the cecum, identified by appendiceal orifice andileocecal valve. The colonoscopy was performed without difficulty. The patient tolerated theprocedure well. The quality of the bowel preparationwas good. ATTESTATION: I was present for the entire procedure from time-out until withdrawal ofthe scope. Findings: The perianal and digital rectal examinations were normal. A 6 mm polyp was found in the transverse colon. The polyp was flat. Preparations were made for mucosal resection. Eleview was injected to raise the lesion. Snare mucosal resection was performed. En Bloc resection was done. Resection and retrieval were complete. Resected tissue margins were examined and clear of polyp tissue. Coagulationwith the snare tip for the edges of the polypectomy site was done successfully . To prevent bleeding after mucosal resection, two hemostatic clips were successfully placed. Clip naturalization examiner: [employer]. There was no bleeding at the end of the procedure. A 20 mm polyp was found in the recto-sigmoid colon. The polyp was sessile. Preparations were made for mucosal resection. Eleview was injected to raise the lesion. Snare mucosal resection was performed.The polyp was removed in piecemeal fashion. Resection and retrieval were complete. Resected tissue margins were examined and clear of polyp tissue. Coagulation for destruction of remaining portion of lesionusing snare was successful. To prevent bleeding after mucosal resection,two hemostatic clips were successfully placed. One [employer] clip and [employer] 360 clip. There was no bleeding at the end of theprocedure. A few small-mouthed diverticula were found in the sigmoid colon. Internal hemorrhoids were found during retroflexion. The hemorrhoids were small. Estimated Blood Loss: Estimated blood loss was minimal. Impression: - One 6 mm polyp in the transverse colon, removed with en-bloc hot EMR. Resected and retrieved. Treated with a hot snare. Clipswere placed. Clip naturalization examiner: [employer]. - One 20 mm polyp at the recto-sigmoidcolon, removed with piecemeal hot EMR. Resected and retrieved. Treated with a hot snare. Clipswere placed. Clip naturalization examiner: [employer] and [employer]. - Diverticulosis in the sigmoid colon. - Internal hemorrhoids. Recommendation: - Patient has a contact number available for emergencies. The signs and symptoms of potential delayed complications werediscussed with the patient. Return to normalactivities tomorrow. Written discharge instructionswere provided to the patient. - Discharge patient to home. - Resume regular diet. - Cipro (ciprofloxacin) 500 mg PO BID for 5 days. - Await pathology results. - Repeat colonoscopy in 6 months to reviewthe polypectomy site. At that time, we will also arrange for EGD for the evaluation ofheartburn and dysphagia. Procedure Code(s): --- Professional --- 74045, Colonoscopy, flexible; withendoscopic mucosal resection Diagnosis Code(s): --- Professional --- D12.3, Benign neoplasm of transverse colon (hepatic flexure or splenic flexure) D12.7, Benign neoplasm of rectosigmoidjunction K64.8, Other hemorrhoids D12.6, Benign neoplasm of colon,unspecified K57.30, Diverticulosis of large intestine without perforation or abscess withoutbleeding CPT copyright 2022 [employer]. All rights reserved. The codes documented in this report are preliminary and upon puppy walker reviewmay be revised to meet current compliance requirements. Dr. Jason GRAHAM MD 07/21/2024 11:55:10 AM This report has been signed electronically. Shaw Martinokatieduane, Number of Addenda: 0 Note Initiated On: 07/21/2024 9:28 AM Jason Graham MD GI PROCEDURE ORDERABLES Rita l Result PM CARDIOVASCULAR * Colonoscopy Report (07/21/2024 9:28 AM EDT) Narrative SYSTEMGENERATED, DOCUMENTATION - 07/21/2024 9:28 AM EDT This order has been auto-finalized for image and report archival in PACs. *For full report details, please reach out to your physician. This image is visible to you in MyChart.* Jason Graham MD IMG OR IMG ORDERABLES Final Result from Last 3 Months Insurance MEDICARE [facility]
--- OUTSIDE RECORDS SUMMARY | 2024-10-19 07:59 | XMS_ITS | Clinical Summary ---
Author Organization [facility] Address [address] [place] [address] Care Team Providers Care Theater Set Production Designer Name Role Phone Unavailable Primary Care Provider Unavailabl e Encounters Date Type Department Care Team Description 07/30/2024 Telephone [facility] [address] [place] [address] Glenis Benitez RN from Last 3 Months Social History Tobacco Use Types Packs/Day Years Used Date Smoking Tobacco: Never Assessed Comments Unknown Sex and Gender Information Value Date Recorded Sex Assigned at Not on file Legal Sex Female 4:59 PM EDT Gender Identity Not on file Sexual Orientation Not on file Plan of Treatment Health Maintenance Due Date Last Done Comments CT Colonography 1955 FOBT 1955 Medicare Annual Wellness (AWV) 1955 Sigmoidoscopy 1955 Depression Screening 1966 Pneumococcal Vaccine: 50+ Ye ars (1 of 1 - PCV) 2004 Zoster Vaccines (1 of 2) 2004 Fall Risk Screening 2019 COVID-19 Vaccine (2 - 2023-2 5 season) 2023 05/25/2021 Influenza Vaccine (#1) 2024 Mammogram 01/24/2025 01/24/2023 FIT 03/26/2025 03/26/2024 FIT-DNA 03/26/2027 03/26/2024 Adult Tetanus 09/28/2028 09/28/2018 Colonoscopy 07/21/2034 07/21/2024 Colorectal Cancer Screening 07/21/2034 HIB Vaccines Aged Out No longer eligi ble based on patient's age to complete this topic HPV Vaccines Aged Out No longer eligi ble based on patient's age to complete this topic IPV Vaccines Aged Out No longer eligi ble based on patient's age to complete this topic Meningococcal B Vaccine Aged Out No l onger eligible based on patient's age to complete this topic Meningococcal Vaccine Aged Out No melanie trey eligible based on patient's age to complete this topic Rotavirus Vaccines Aged Out No longer eligible based on patient's age to complete this topic Insurance MEDICARE Member Subscriber Plan / Payer (Ef fective 2019-Present) Name:Nan Montes De Oca Member ID:[id number] Relation to Subscriber:Self Name:Nan Montes De Oca Subscriber ID:[id number] Payer ID:[id number] Group ID:Not on file Type:Medicare Address: [facility] [place] [id number] [place] [address]
--- OUTSIDE RECORDS SUMMARY | 2024-10-19 07:59 | XMS_ITS | Encounter Summary ---
Author Organization [facility] Address [id number] [address] [place] [address] Care Team Providers Care Foundry Helper Name Role Phone Unavailable Primary Care Provider Unavailabl e Encounter Details Date Type Department Care Team (Late st Contact Info) Description 06/26/2024 Orders Only [facility] [address] [place] [address] External, Scanning Provider Social History Tobacco Use Types Packs/Day Years Used Date Smoking Tobacco: Never Smokeless Tobacco: Never Alcohol Use Standard Drinks/Week Comments Never 0 (1 standard drink = 0.6 oz pur e alcohol) Hunger Screening Answer Date Recorded Within the past 12 months we worried whether our food would run out before we got money to buy more. Never True 06/23/2024 Within the past 12 months th e food we bought just didn't last and we didn't have money to get more. Never True 06/23/2024 Comments Unknown Sex and Gender Information Value Date Recorded Sex Assigned at Not on file Legal Sex Female 5:02 PM EDT Gender Identity Not on file Sexual Orientation Not on file documented as of this encounter Plan of Treatment Not on file documented as of this encounter Procedures Procedure Name Priority Date/Time Associated Diagnosis Comments MULTIPLE LABS Routine 06/24/2024 documented in this encounter Results * Multiple labs (06/24/2024) 06/24/2024 us Scanning Provider External MS IMAGING Final Result MANUALLY TRANSCRIBED RESULTS documented in this encounter Visit Diagnoses Not on filedocumented in this encounter
--- OUTSIDE RECORDS SUMMARY | 2024-10-19 07:59 | XMS_ITS | Encounter Summary ---
Author Organization [facility] Address [address] [place] [address] Care Team Providers Care Access Registrar Name Role Phone Ellen Barrett MD Primary Care Provider [phone] Ellen Barrett MD Unavailable [phone] Encounter Details Date Type Department Care Team (Late st Contact Info) Description 05/21/2024 Orders Only [facility] [address] [place] [phone] Jackson Hughes MD [address] [place] [id number] Social History Tobacco Use Types Packs/Day Years [...] Procedure Name Priority Date/Time Associated Diagnosis Comments HM COLONOSCOPY Routine 05/15/2024 4:18 PM EDT documented in this encounter Results * Hm Colonoscopy (05/15/2024 4:18 PM EDT) Anatomical Region Laterality Modality Other Jackson Hughes MD HEALTH MAINTENANCE Final Result documented in this encounter Visit Diagnoses Not on filedocumented in this encounter Additional Health Concerns Assessment Noted Time PHQ-9 Depression Total Score: 0 12/27/19 23 8:00 AM EDT documented as of this encounter Care Teams Access Registrar Relationship Specialty Start Date End Date Ellen Barrett MD [address] [place] [address] PCP - General Family Medicine 07/03/22 Ellen Barrett MD [address] [place] [address] PCP - ACO Reach 04/03/24 documented as of this encounter
--- OUTSIDE RECORDS SUMMARY | 2024-10-19 07:59 | XMS_ITS | Encounter Summary ---
Author Organization [facility] Address [address] [place] [address] Care Team Providers Care Choreography Director Name Role Phone Meghann Chung MD Unavailable [phone] Ellen Barrett MD Primary Care Provider [phone] Ellen Barrett MD Unavailable [phone] Encounter Details Date Type Department Care Team (Late st Contact Info) Description 05/10/2023 Orders Only [facility] Medicine [address] [place] [address] Sybil Gupta MA Breast cancer screening by mammogram Social History Tobacco Use Types Packs/Day Years [...] Procedure Name Priority Date/Time Associated Diagnosis Comments BI MAMMOGRAM SCREENING TOMOSYNTHESIS BILATERAL Routine 01/24/2023 4:44 PM EST Breast cancer screening by mammogram documented in this encounter Results * Bilateral screening mammogram with tomosynthesis (01/24/2023 4:44 PM EST) us Ellen Barrett MD IMG BI PROCEDURES Final Resul t documented in this encounter Visit Diagnoses Diagnosis Breast cancer screening by mammogram documented in this encounter Additional Health Concerns Assessment Noted Time PHQ-9 Depression Total Score: 0 11/01/20 23 8:00 AM EDT documented as of this encounter Care Teams Choreography Director Relationship Specialty Start Date End Date Meghann Chung MD [address] [place] [address] PCP - ACO Reach 07/19/22 04/02/24 Ellen Barrett MD [address] [place] [address] PCP - General Family Medicine 07/03/22 Ellen Barrett MD [address] [place] [address] PCP - ACO Reach 04/03/24 documented as of this encounter
--- NOTE | 2024-10-19 08:01 | MM_ITS ---
Patient Name: OSORIO ANN MR#: [id number] : 1955 Exam Date: 10/19/2024 Ordering Doctor: FELISHA CASILLAS RADIOLOGY REPORT PROCEDURE: MM TOMOSYNTHESIS SCREENING BI COMPARISON: MM TOMOSYNTHESIS SCREENING BI, 01/22/2023. MG MAMM SCREEN 3D JORGE CAD, 09/13/2020. MG MAMM SCREEN JORGE W CAD, 12/26/2017. MG MAMM SCREEN JORGE W CAD, 01/01/2013. INDICATIONS: Screening for malignant neoplasm Calculator Name NCI Breast Cancer Risk Assessment Tool 5 Year Breast Cancer Risk 2.30% Lifetime Breast Cancer Risk 6.60% Personal Breast Cancer No Personal Ovarian Cancer No Treatments None Family Cancers None LOCATION: [facility] BREAST COMPOSITION: There are scattered areas of fibroglandular density. FINDINGS: DIAGNOSTIC CATEGORY 1--NEGATIVE. RIGHT BREAST: No significant suspicious finding. LEFT BREAST: No significant suspicious finding. RECOMMENDATIONS: ROUTINE MAMMOGRAM AND CLINICAL EVALUATION IN 12 MONTHS. Dictated by: Chase Hearn DO on 10/19/2024 at 10:05 Approved by: Chase Hearn DO on 10/19/2024 at 10:13
--- OUTSIDE RECORDS SUMMARY | 2024-10-19 08:01 | XMS_ITS | CCD ---
Author Organization [facility] Care Team Providers Care Biometric Screener Name Role Phone GAMAL JORGE Admitting Unavailable GAMAL JORGE Attending Unavailable SHELDON, MEGHANN Primary Care Unavailable GAMAL JORGE Consulting Unavailable REQUEST, NONE LISTED Admitting Unavaila ble REQUEST, NONE LISTED Attending Unavaila ble REQUEST, NONE LISTED Consulting Unavaila ble ELLEN CASILLAS Primary Care Unavailable PATRICK GATES Consulting Unavailable MISC, DR JESUS Admitting Unavailable MISC, DR JESUS Attending Unavailable SHELDON, MEGHANN Admitting Unavailable SHELDON, MEGHANN Attending Unavailable SHELDON, MEGHANN Primary Care Unavailable ZIEBER, DR JORJE Heredia Consulting Unavailable SHELDON, MEGHANN Consulting Unavailable Ellen Casillas Primary Care Physician Meghann Chung MD Unavailable [phone] Ellen Casillas MD Primary Care Provider NILL, Jackson R Referring Unavailable NILL, Jackson R Attending Unavailable NILL, Jackson R Admitting Unavailable NILL, Jackson R Attending Unavailable NILL, Jackson R Referring Unavailable NILL, Jackson R Attending Unavailable NILL, Jackson R Admitting Unavailable Stephanie Sheffield APRN Attending Provider Stephanie Sheffield Admitting Unavailable Stephanie Sheffield Attending Unavailable Unavailable Primary Care Provider UnavailEllen Francis MD Unavailable TIFFANY SHEPHERD Attending Unavailab le Allergies Allergy Classification Reported Allergen(s) Allergy Type Date of Onset Reaction(s) Facility (1 source) Nut Flavor Drug allergy (disorder) [facility] Repository (18 sources) Amoxicillin; Translations: [amoxicillin] Drug Allergy 3 Diarrhea (finding), Diarrhea [facility] (10 sources) Aspirin; Translations: [aspirin] Drug Allergy 3 Headache [facility] (16 sources) Cefuroxime; Translations: [cefuroxime] Drug Allergy 3 Unknown (qualifier value), Other (See Comments) [facility] (5 sources) Egg; Translations: [Eggs] Propensity to adverse reactions to food Sensitivity [facility] (14 sources) Erythromycin; Translations: [erythromycin] Drug Allergy 3 Headache (finding), Headache [facility] (18 sources) Meperidine; Translations: [meperidine] Drug Allergy 3 unknown, Unknown Reaction [facility] (18 sources) Midazolam; Translations: [midazolam] Drug Allergy 3 Vomiting (disorder), Nausea [facility] (5 sources) Nuts (not including peanuts); Translations: [Nuts] Drug allergy [facility] (5 sources) Milk Products; Translations: [Milk Products] Propensity to adverse reactions to food Sensitivity [facility] (6 sources) Aluminum aspirin Drug Allergy 3 [facility] (6 sources) Lactose (non-medical use) Drug Intolerance 3 [facility] (6 sources) Other Allergy to substance 3 [facility] (3 sources) Lactose; Translations: [lactose] Drug Allergy 5 Unknown Reaction [facility] (3 sources) tree nut, unspecified; Translations: [tree nut] Allergy to substance 5 Unknown Reaction [facility] (3 sources) erythromycin base; Translations: [erythromycin base] Allergy to substance 5 Headache [facility] (1 source) Amoxicillin Drug Allergy 5 [facility] Repository (1 source) Aspirin Drug Allergy 5 [facility] Repository (1 source) Cefuroxime Drug Allergy 5 [facility] Repository (1 source) Meperidine Drug Allergy 5 [facility] Repository (1 source) Midazolam Drug Allergy 5 [facility] Repository (3 sources) egg extract Drug Allergy 5 Other (See Comments) [facility] (3 sources) Milk Propensity to adverse reactions to drug 5 Other (See Comments) [facility] (3 sources) Nut - Unspecified Propensity to adverse reactions to drug 5 [facility] Medications Current Medications Medication Drug Class(es) Dates Sig (Normalized) Sig (Original) doxycycline hyclate 100 mg oral tablet (2 sources) Tetracycline-class Drug Start: 09-26-2018 take 1 tablet by mouth twice daily doxycycline hyclate 100 mg Tab 100 mg = 1 tab(s), Oral, BID, # 20 tab(s), Refills(s) 0, Pharmacy: [facility]/pharmacy #[id number] Start Date: 09/26/18 Status: Ordered estradiol 0.1 mg/ml vaginal cream (2 sources) Estrogen Start: 08-21-2018 estradiol 0.1 mg/g Vag Crm 1 gram, Vaginal, Once a day (at bedtime) Start Date: 08/21/18 Status: Ordered Garlic preparation (1 source) Non-Standardized Food Allergenic Extract Start: 05-09-2022 garlic Refill(s) 0 Start Date: 05/09/22 Status: Ordered hydrocortisone 10 mg/ml topical cream (1 source) Corticosteroid Start: 05-21-2024 Hydrocortisone (Preparation H Hydrocortisone) 1 % cream Active 1 APPLIC TOPICAL Four times daily 28.35 May 21, 2024 12:00am ibuprofen 600 mg oral tablet (4 sources) Nonsteroidal Anti-inflammatory Drug Start: 03-14-2013 take 1 tablet by mouth every six hours ibuprofen 600 mg Tab 600 mg = 1 tab(s), Oral, q6hr, # 20 tab(s), Refills(s) 0, 0, Print Requisition Start Date: 03/14/13 Status: Ordered Start: 03-14-2013 take 1 tablet by nandini th every four hours Advil 200 mg oral tablet 200 mg = 1 tab(s), Oral, q4hr, Refills(s) 0 Start Date: 03/14/13 Status: Ordered nitrofurantoin, macrocrystals 25 mg / nitrofurantoin, monohydrate 75 mg oral capsule (1 source) Nitrofuran Antibacterial Start: 05-21-2024 take 1 capsule by mouth every twelve hours at mealtime Nitrofurantoin Monohyd/M-Cryst (Macrobid) 100 mg capsule Active 100 MG PO Every 12 hours 14 May 21, 2024 12:00am must administer with a meal/food predniSONE 20 mg oral tablet (3 sources) Start: 09-15-2024 predniSONE (Deltasone) 20 MG tablet Indications: Rib pain on right side 3 tablets for 3 days, then 2 tablets for 3 days, then 1 tablet for 3 days then stop 18 tablet 09/15/2024 Active sulfamethoxazole 800 mg / trimethoprim 160 mg oral tablet (1 source) Dihydrofolate Reductase Inhibitor Antibacterial, Sulfonamide Antimicrobial Start: 09-22-2024 End: 09-29-2024 take 1 tablet by mouth once in the morning, then take 1 tablet by mouth once at bedtime sulfamethoxazole-tr imethoprim (Bactrim DS) 800-160 MG per tablet Indications: Positive urine culture Take 1 tablet by mouth in the morning and 1 tablet before bedtime. Do all this for 7 days. 14 tablet 09/22/2024 09/29/2024 Active tamsulosin hydrochloride 0.4 mg oral capsule (2 sources) alpha-Adrenergic Ta Start: 08-19-2020 take 1 capsule by mouth once daily Flomax 0.4 mg Cap 0.4 mg = 1 cap(s), Oral, Daily, # 10 cap(s), Refills(s) 0, Pharmacy: [facility] [id number], 163, cm, 08/19/20 12:36:00 EDT, Height/Length Dosing, 76, kg, 08/19/20 12:36:00 EDT, Weight Dosing Start Date: 08/19/20 Status: Ordered tiZANidine 4 mg oral tablet (3 sources) Central alpha-2 Adrenergic Agonist Start: 09-15-2024 take 1 tablet by mouth every eight hours for muscle spasms tiZANidine (Zanaflex) 4 MG tablet Indications: Rib pain on right side Take 1 tablet (4 mg) by mouth every 8 (eight) hours if needed for muscle spasms 20 tablet 09/15/2024 Active traMADol hydrochloride 50 mg oral tablet (2 sources) Opioid Agonist Start: 03-14-2013 take 1 tablet by mouth every six hours as needed for pain Ultram 50 mg Tab 50 mg = 1 tab(s), Oral, q6hr, PRN PRN Pain, # 16 tab(s), Refills(s) 0, 0, Print Requisition Start Date: 03/14/13 Status: Ordered Zofran ODT 4 mg Tab-Dis (2 sources) Start: 08-19-2020 take 1 tablet by mouth three times daily Zofran ODT 4 mg Tab-Dis 4 mg = 1 tab(s), Oral, TID, # 15 tab(s), Refills(s) 0, Pharmacy: [facility], 163, cm, 08/19/20 12:36:00 EDT, Height/Length Dosing, 76, kg, 08/19/20 12:36:00 EDT, Weight Dosing Start Date: 08/19/20 Status: Ordered Completed/Discontinued Medications Medication Drug Class(es) Dates Sig (Normalized) Sig (Original) traZODone hydrochloride 50 mg oral tablet (5 sources) Serotonin Reuptake Inhibitor Start: 12-26-2022 End: 09-15-2024 take 0.5 tablet by mouth at bedtime traZODone (Desyrel) 50 MG tablet Indications: Primary insomnia Take 0.5 tablets (25 mg) by mouth at bedtime. 30 tablet 3 12/26/2022 09/15/2024 Discontinued (Therapy completed) Problems Active Problems Problem Classification Problem Date Documented Da te Episodic/Chronic Anal and rectal conditions (6 sources) Lesion of rectum; Translations: [Disease of anus and rectum, unspecified] Onset: 5 06-23-2024 Episodic Esophageal disorders (2 sources) Gastroesophageal reflux disease; Translations: [Gastro-esophageal reflux disease without esophagitis] 05-21-2024 Chronic Genitourinary symptoms and ill-defined conditions (20 sources) Genuine stress incontinence; Translations: [Incontinence without sensory awareness] Onset: 3 08-21-2018 Chronic Genitourinary symptoms and ill-defined conditions (20 sources) Unspecified symptoms and signs involving the genitourinary system; Translations: [Dysuria] Onset: 2 Episodic Heart valve disorders (5 sources) Mitral valve prolapse; Translations: [Nonrheumatic mitral (valve) prolapse] 09-27-2009 Chronic Malaise and fatigue (2 sources) Fatigue; Translations: [Other fatigue] 09-15-2024 Episodic Other circulatory disease (2 sources) Elevated blood-pressure reading without diagnosis of hypertension; Translations: [Elevated blood-pressure reading, without diagnosis of hypertension] 09-15-2024 Episodic Other connective tissue disease (2 sources) Fibromyalgia; Translations: [Fibromyalgia] 05-21-2024 Episodic Other gastrointestinal disorders (1 source) Stool DNA-based colorectal cancer screening positive; Translations: [Other fecal abnormalities] 04-02-2024 Episodic Other gastrointestinal disorders (1 source) Abnormal feces; Translations: [Other fecal abnormalities] Onset: Episodic Other inflammatory condition of skin (1 source) Pruritus ani; Translations: [Pruritus ani] 05-21-2024 Episodic Other lower respiratory disease (2 sources) Rib pain; Translations: [Pleurodynia] 09-15-2024 Episodic Other nutritional; endocrine; and metabolic disorders (3 sources) Overweight; Translations: [Overweight] 04-28-2024 Episodic Other nutritional; endocrine; and metabolic disorders (3 sources) Overweight in adulthood with body mass index of 25 or more but less than 30; Translations: [Body mass index (BMI) 29.0-29.9, adult] 04-28-2024 Episodic Residual codes; unclassified (2 sources) Chill; Translations: [Chills (without fever)] 09-15-2024 Episodic Residual codes; unclassified (2 sources) Other problems related to lifestyle; Translations: [Other problems related to lifestyle] 09-15-2024 Episodic Unclassified (3 sources) Finding of sensation of bladder 09-22-2018 Unclassified (1 source) Patient encounter status 05-09-2022 Unclassified (1 source) Autogenerated Problem Onset: 06-30-2024 Urinary tract infections (1 source) Acute cystitis with hematuria; Translations: [Acute cystitis] 05-21-2024 Episodic Past or Other Problems Problem Classification Problem Date Documented Da te Episodic/Chronic Abdominal hernia (10 sources) Diaphragmatic hernia; Translations: [Diaphragmatic hernia without obstruction or gangrene] Onset: 05-09-2022 Episodic Abdominal pain (11 sources) Abdominal tenderness; Translations: [Abdominal tenderness, unspecified site] Onset: 12-26-2022 08-21-2018 Episodic Calculus of urinary tract (12 sources) History of calculus of kidney; Translations: [Kidney stone] Onset: 12-26-2022 08-21-2018 Episodic Immunizations and screening for infectious disease (4 sources) Encounter for immunization; Translations: [ENCOUNTER FOR IMMUNIZATION] Onset: 12-20-2020 Episodic Mood disorders (6 sources) Mood disorders Onset: 12-26-2022 12-26-2022 Other gastrointestinal disorders (10 sources) Dysphagia; Translations: [Dysphagia, unspecified] Onset: 05-09-2022 Episodic Other infections; including parasitic (9 sources) Urethral stricture due to infection; Translations: [Urethral disorders in diseases classified elsewhere] Onset: 12-26-2022 09-22-2018 Episodic Other screening for suspected conditions (not mental disorders or infectious disease) (15 sources) Encounter for screening mammogram for malignant neoplasm of breast; Translations: [Screening for malignant neoplasm of colon done] Onset: 09-13-2020 Episodic Results Test Name Value Interpretation Reference Range Facility 36on 07-30-20[address] Quezada that biopsies showed benign polyps. Plan to repeat Cln in 6 mos. to assess EMR site w/EGD/Dysphagia/Heartburn. Verbal understanding acknowledged. Patient called requesting biopsy results from 07/21/24 Cln/EMR. Direct message sent to Dr. Quezada from review and patient notified w/ verbal understanding. [facility] Telephoneon 07-30-2024 Telephone [id number] Cady Ann 1955 F Date Provider Department Center 07/30/2024 [id number] [facility] No family history on file [facility] 36on 06-30-2024 36 Scheduled Cln/EMR/Re ctal Lesion 07/21/24 @1100, PTH, Dr. Bae, PAT ph: 07/14/24 @1000, Dulcolax/Miralax, #[id number]. Ref in media 06/23/24, Dr. Ding. Please note her DPA: No blood products. Normal [facility] 36 Scheduled Cln/EMR/Re ctal Lesion 07/21/24 @1100, PTH, Dr. Bae, PAT ph: 07/14/24 @1000, Dulcolax/Miralax, #[id number]. Referral from Dr. Ding in media 06/23/24. Spoke re: scheduling Cln/EMR. Patient had questions and answers were given. She will discuss the procedure w/ her and call back to schedule. Most concerned about her choice to not receive blood products and if insurance would cover it. [facility] Telephoneon 06-30-2024 Telephone [id number] Cady Ann 1955 F Date Provider Department Center 06/30/2024 [id number] [facility] No family history on file [facility] Urine Cultureon 05-21-2024 Bacteria identified Cx Nom (U) ORGANISM: Escherichia coli (O:ESCCOL) [place] Count >100,000 Aerobic DUANE Charge ([id number]) SUSCEPTIBILITY ORGANISM: O:ESCCOL ANTIBIOTIC INTERPRETATION DUANE Amikacin S <16 Amoxacillin/K Clavulanate S <8 Ampicillin S <8 Ampicillin/Sulbactam S <4 Aztreonam S <4 Cefazolin S <2 Cefepime S <2 Ceftazidime S <1 Ceftazidime/Avibactam S <4 Ceftolozane/Tazobactam S <2 Ceftriaxone S <1 Cefuroxime S <4 Ciprofloxacin S <0.25 Ertapenem S <0.5 Gentamicin S <2 Levofloxacin S <0.5 Meropenem S <1 Meropenem/Vaborbactam S <2 Nitrofurantoin S <32 Piperacillin/Tazobactam S <8 Tetracycline S <4 Tigecycline S <2 Tobramycin S <2 Trimethoprim/Sulfamethoxazole S <0.5 S = SUSCEPTIBLE I = INTERMEDIATE R = RESISTANT BLANK = DATA NOT AVAILABLE, OR DRUG NOT ADVISABLE OR TESTED R* = RESISTANCE DUE TO EXTENDED SPECTRUM BETA-LACTAMASES ESBL = EXTENDED SPECTRUM BETA-LACTAMASE TFG = THYMIDINE-DEPENDENT STRAIN DAVID = BETA-LACTAMASE POSITIVE IB = INDUCIBLE BETA-LACTAMASE. APPEARS IN PLACE OF 'S' WITH SPECIES KNOWN TO POSSESS INDUCIBLE BETA-LACTAMASES. POTENTIALLY THEY MAY BECOME RESISTANT TO ALL B-LACTAM DRUGS. PERFORMED BY: [facility] [address] [place] [address] PATHOLOGIST HEAT TREAT FURNACE OPERATOR KIMBERLEE JAMA M.D. Normal [facility] Comment on above: Performed By: #### C UU #### [place] [id number] [facility] Surgical Pathology Reporton 05-19-2024 Surgical Pathology Report [address] [address]- Surgical Pathology Report Collected Date/Time: 05/15/2024 10:05 EDT Pathologist: Cora Montemayor MD Received Date/Time: 05/15/2024 10:30 EDT XAVI VARGAS, Jackson Chester MD Surgical Pathology Report - 05/19/2024 18:32 EDT - Auth (Verified) Final Diagnosis POLYP, RECTUM, POLYPECTOMY: - FRAGMENTED TUBULOVILLOUS ADENOMA (Electronic Signature) Myrlande. Sim MD 05/19/2024 18:32 Clinical Information Positive cologuard Pre-Op Diagnosis: Positive cologuard Procedure: Colonoscopy Post-Op Diagnosis: Sessile rectal polyp Specimen(s) Received Rectal polyp biopsy Gross Description Received in formalin labeled with patient name, number, and rectal polyp biopsy are multiple fragments of schmitt/pink tissue ranging from less than 0.1 cm up to 0.4 cm in greatest dimension measuring in aggregate 1 x 0.5 x 0.1 cm. Specimen is entirely submitted in one cassette. (DC) DC:[facility] Microscopic Description Microscopic examination performed unless gross only specified. This report was transcribed using voice recognition technology and might contain unintended computerized retail interior designer errors. Normal [facility] Comment on above: Performed By: #### [id number] #### [facility] [address] [place] [address] Main OR Intraoperative Recor don 05-18-2024 Main OR Intraoperative Record Main OR Intraoperative Record IntraOp Document Type FT Summary Primary Physician: Jackson HUGHES MD Finalized Date/Time: 05/18/24 14:12:42 Pt. Name: OSORIO ANN/Sex: 1955 Female Med Rec #: [id number] Physician: XAVI VARGAS, Jackson [employer] #: [id number] Pt. Type: O Room/Bed: / Admit/Disch: 05/15/24 08:45:42 - 05/16/24 23:59:59 Institution: Case Times FT Entry 1 Patient Times In Room 05/15/24 09:45:00 Out Room 05/15/24 10:10:00 Procedure Times Start 05/15/24 09:49:00 Stop 05/15/24 10:07:00 Anesthesia Times Start 05/15/24 09:45:00 Stop 05/15/24 10:10:00 Time at [place] 05/15/24 09:59:00 Last Modified By: Yasmeen STEVENSON, Natalie Bailey 05/15/24 10:10:24 Case Attendance FT Entry 1 Entry 2 Entry 3 Case Attendee Moisés VILLALOBOS, Mauricio HUGHES MD, Jackson Arana RN, Natalie Bailey Role Performed Anesthesiologist Surgeon - Primary Softball Coach - Primary Bowling Ball Mold Assembler Time In 05/15/24 09:45:00 05/15/24 09:45:00 05/15/24 09:45:00 Time Out 05/15/24 10:10:00 05/15/24 10:10:00 05/15/24 10:10:00 Procedure COLONOSCOPY(.) COLONOSCOPY(.) COLONOSCOPY(.) Comments Dr. Spears supervising case Last Modified By: Yasmeen RN, Natalie Arana RN, Natalie Arana RN, Natalie Bailey 05/15/24 10:10:25 F 05/15/24 10:10:25 F 05/15/24 10:10:25 Entry 4 Case Attendee Samanta Fields Role Performed Scrub - Primary Time In 05/15/24 09:45:00 Time Out 05/15/24 10:10:00 Procedure COLONOSCOPY(.) Comments Last Modified By: Yasmeen STEVENSON, Natalie Bailey 05/15/24 10:10:25 Perioperative Protocols FT Pre-Care Text: Implements protective measures prior to operative or invasive procedure, confirms identity before the operative or invasive procedure, verifies operative procedure, surgical site, and laterality Entry 1 Procedure(s) COLONOSCOPY(.) Patient Identity Birthday, ID Band Verified (select at Check, Patient least 2): Participation Consents / H and P Anesthesia Consent, Operative Site N/A Verified Surgery/Procedure Marking Verified Consent Surgical Site No Laterality Verified n/a Verified Procedure Verified Yes Correct Patient Yes Position Verified Availability Equipment, Medication Prep Dry n/a Verified (If Applicable) PreOp Antibiotic No Time Out Mauricio Logan Given Participants XAVI Fonseca MD, Yasmeen Jimenez RN, Diamond Bhat Micala E Time Out Complete 05/15/24 09:46:00 Outcomes Met? Yes Last Modified By: Natalie Arana RN 05/15/24 09:48:18 Post-Care Text: The patient is free from signs and symptoms of injury caused by extraneous objects Allergy Information FT Pre-Care Text: Verifies allergies Entry 1 Allergies Reviewed? Yes Allergies Reviewed Self/Patient With Outcomes Met? Yes Last Modified By: Natalie Arana RN 05/15/24 09:48:24 Post-Care Text: The patient received appropriate medication(s) safely administered during the perioperative period Surgical Procedures FT Entry 1 Procedure Description Procedure COLONOSCOPY Modifiers . Surgeon Description Colonoscopy with rectal polyp biopsy. Primary Procedure Yes Primary Surgeon Jackson HUGHES MD Start 05/15/24 09:49:00 Stop 05/15/24 10:07:00 Anesthesia Type General Surgical Service General Wound Class 2 - Clean-Contaminated Last Modified By: Natalie Arana RN 05/15/24 10:07:58 General Case Data FT Pre-Care Text: Classifies surgical wound, implements aseptic technique, initiates traffic control Entry 1 Case Information OR ENDO 2 FT Case Level Level 2 Wound Class 2 - Clean-Contaminated Specialty General ASA Class 2 Preop Diagnosis Positive cologuard Postop Same As Preop No Postop Diagnosis Rectal polyp Outcomes Met? Yes Last Modified By: Natalie Arana RN 05/15/24 10:05:15 Post-Care Text: The patient is free from signs and symptoms of infection Skin Assessment (Pre Procedure) FT Pre-Care Text: Implements protective measures to prevent skin/ tissue injury due to thermal or mechanical sources Evaluates for signs and symptoms of physical injury to skin and tissue Entry 1 Skin Integrity Intact, [place], Warm, & Skin Abnormality No Dry Outcomes Met? Yes Last Modified By: Natalie Arana RN 05/15/24 09:49:02 Post-Care Text: The patient is free from signs and symptoms of injury caused by extraneous objects Patient Positioning FT Pre-Care Text: Identifies physical alterations that require additional precautions for procedure-specific positioning, verifies presence of prosthetics or corrective devices, positions the patient, evaluates the patient for signs and symptoms of injury as a result of positioning Entry 1 Procedure COLONOSCOPY(.) Body Position Lateral, right side up Feet Uncrossed? Yes Left Arm Position Resting at Side Right Arm Position Resting at Side Left Leg Position Extended Right Leg Position Extended Positioning Device Safety Strap, Pillow Under Head Lar (more content not included)... Normal [facility] Discharge Instructionson Discharge Instructions Discharge Instructions OSORIO ANN :1955 Visit Date:05/15/2024 Inpatient Discharge Instructions Your Care Team Admitting Physician - Jackson HUGHES MD Referring Physician - Jackson HUGHES MD Reason for Your Visit POSITIVE COLOGUARD Your Diagnosis Sessile rectal polyp Tests Performed Pathology Tissue Exam -- Results Pending -- Please visit your patient portal for your results or contact your primary care physician. Procedure History Colonoscopy (04/2012), EGD - esophagogastroduodenoscopy (04/2012), Appendectomy, Breast biopsy and related procedures, Cystoscopy, Lysis of adhesions, TREVER BSO - Total abdominal hysterectomy and bilateral salpingo-oophorectomy. Discharge Vitals Temperature (Temporal Artery) 36 ???C Heart Rate (Monitored) 85 Respiratory Rate 12 Blood Pressure 140/66 Height 165 cm Weight 77.8 kg What to do next Instructions From Your Doctor Event Name Event Result Discharge Activity Resume normal activities in 24 hours, Arrange for a responsible adult supervision for 24 hours Discharge Restrictions No driving for 24 hrs, Do not operate machinery or tools, Do not make important decisions for 24 hours, Do not drink alcoholic beverages for 24 hours Discharge Diet(s) Regular Call Your Doctor For Persistent or heavy bleeding, Temperature above 101.5 degrees, Severe pain at the operative site, Persistent vomiting Discharge Instructions Discharge Instructions New Follow Up Appointments after Discharge Follow Up with Jackson HUGHES When: Within 7 to 10 days Where: [facility], [address] [address]- Business (1) Test Results No qualifying data available. Allergies Cefuroxime Axetil (Unknown) Demerol HCl (unknown) Eggs (Sensitivity) Milk Products (Sensitivity) Nuts Versed (Vomiting) amoxicillin (Diarrhea) aspirin (excessive bleeding) erythromycin (Headache) Problems Ongoing - Any problem that you are currently receiving treatment for. 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 Abdominal tenderness MVP - Mitral valve prolapse Renal Calculus Education Materials Colonoscopy Care After Surgery Please read the instructions outlined below and refer to this sheet in the next few weeks. These discharge instructions provide you with general information on caring for yourself after you leave the hospital. Your doctor may also give you specific instructions. While your treatment has been planned according to the most current medical practices available, unavoidable complications occasionally occur. If you have any problems or questions after discharge, please call your doctor. ACTIVITY You may resume your regular activity, but move at a slower pace for the next 24 hours. Take frequent rest periods for the next 24 hours. Walking will help get rid of the air and reduce the bloated feeling in your abdomen (belly). No driving for 24 hours (because of the anesthesia (medicine) used during the test). You may shower. Do not sign any important legal documents or operate any machinery for 24 hours (because of the anesthesia used during the test). NUTRITION Drink plenty of fluids. You may resume your normal diet as instructed by your doctor. Begin with a light meal and progress to your normal diet. Heavy or fried foods are harder to digest and may make you feel nauseated (sick to your stomach). Avoid alcoholic beverages for 24 hours or as instructed. MEDICATIONS You may resume your normal medications unless your doctor tells you otherwise. WHAT YOU CAN EXPECT TODAY Some feelings of bloating in the abdomen. Passage of more gas than usual. Spotting of blood in your stool or on the toilet paper. FOLLOW-UP Your doctor will discuss the results of your test with you. SEEK IMMEDIATE MEDICAL ATTENTION IF: There is more than a spotting of blood in your stool. There is abdominal distention (your abdomen is swollen). There is vomiting. You have a temperature over 101.5 F. There is abdominal pain or discomfort that is severe or gets worse throughout the day. Common Emergency Awareness Tips IS IT A STROKE? Act FAST and Check for these signs: FACE Does the face look uneven? ARM Does one arm drift down? SPEECH Does their speech sound strange? TIME Call at any sign of stroke Heart Attack Signs Chest discomfort: Most heart attacks involve discomfort in the center of the chest and lasts more than a few minut (more content not included)... [facility] Comment on above: Result Comment: Elec tronically Signed By: Virgen STEVENSON, Alycia\.br\Date and Time Signed: 05/15/24 10:17 EDT Inpatient Patient Summaryon 05-15-2024 Inpatient Patient Summary Inpatient Patient Summary [place] [id number] [facility] Clinical Discharge Instructions PERSON INFORMATION Name: OSORIO ANN PHYSICIANS Admitting Physician: Jackson HUGHES MD Attending Physician: Jackson HUGHES MD PCP: Ellen Casillas MD Discharge Diagnosis: Sessile rectal polyp Comment: PATIENT EDUCATION INFORMATION Instructions: Medication Leaflets: Follow up: With: Address: When: Jackson HUGHES [address] [place] [address], [address], [place] [address] Business (0) Within 7 to 10 days MEDICATION LIST Comment: [facility] Main OR PACU II Recordon Main OR PACU II Record Main OR PACU II Record PACU Phase II Document Type FT Summary Primary Physician: Jackson HUGHES MD Finalized Date/Time: 05/15/24 12:29:37 Pt. Name: SCOTHARRISONOSORIO D.O.B./Sex: 1955 Female Med Rec #: [id number] Physician: Jackson HUGHES MD Financial #: [id number] Pt. Type: O Room/Bed: / Admit/Disch: 05/15/24 08:45:42 - Institution: Case Times PACU II FT Pre-Care Text: Identifies barriers to communication and implements measures to provide psychological support and determines knowledge level Develops individualized plan of care, and ensures continuity of care Maintains patient's dignity and privacy, and maintains patient confidentiality Identifies and reports philosophical, cultural, and spiritual beliefs and values Identifies individual values and wishes concerning care administers prescribed antibiotic therapy and immunizing agents as ordered, Evaluates postoperative tissue perfusion Implements thermoregulation measures, and monitors body temperature Evaluates postoperative respiratory status Evaluates postoperative cardiac status Evaluates postoperative neurological status Assesses pain control, collaborated in initiating patient-controlled analgesia and implements alternative methods of pain control Verifies allergies, administers prescribed medications and solutions, evaluates response to medications Entry 1 In PACU II 05/15/24 10:11:00 Discharge from PACU 05/15/24 10:41:00 II Outcomes Met? Yes Last Modified By: Alycia New RN 05/15/24 12:29:33 Post-Care Text: The patient demonstrates knowledge of the expected response to the operative or invasive procedure The patient's care is consistent with the individualized perioperative plan of care The patient's right to privacy is maintained The patient's value system, lifestyle, ethnicity, and culture are considered, respected, and incorporated into the perioperative plan of care The patient participates in decisions affecting his or her perioperative plan of care. The patient is free from signs and symptoms of infection The patient has wound/tissue perfusion consistent with or improved from baseline levels established preoperatively The patient is at or returning to normothermia at the conclusion of the immediate postoperative period The patient's respiratory function is consistent with or improved from baseline levels established preoperatively The patient's cardiovascular status is consistent with or improved from baseline levels established preoperatively The patient's neurological status is consistent with or improved from baseline levels established preoperatively The patient demonstrates and/or reports adequate pain control throughout the perioperative period The patient received appropriate medication(s), safely administered during the perioperative period Finalized By: Alycia New RN Document Signatures Signed By: Alycia New RN 05/15/24 12:29 [facility] Main OR Preoperative Recordo n 05-15-2024 Main OR Preoperative Record Main OR Preoperative Record Holding Area Document Type FT Summary Primary Physician: Jackson HUGHES MD Finalized Date/Time: 05/15/24 09:28:07 Pt. Name: OSORIO ANN /Sex: 1955 Female Med Rec #: [id number] Physician: Jackson HUGHES MD Financial #: [id number] Pt. Type: O Room/Bed: / Admit/Disch: 05/15/24 08:45:42 - Institution: Case Times Holding FT Pre-Care Text: Verifies consent for planned procedure, identifies individual values and wishes concerning care, includes family members in perioperative teaching Secures patient's records' belongings, and valuables, maintains patient's dignity and privacy, and maintains patient confidentiality Entry 1 In Holding 05/15/24 09:10:00 Outcomes Met? Yes Last Modified By: Nancy Estes RN 05/15/24 09:14:49 Post-Care Text: The patient participates in decisions affecting his or her perioperative plan of care The patient's right to privacy is maintained Surgery Checklist FT Entry 1 Patient Birthday, ID Band Procedure History and Physical, Identification: Check, Patient Verification: Surgical Consent, With Participation Patient NPO after Midnight: Yes Results Reviewed Clear Comments: Complaints of Pain: No Pain Comment: Denies Operative Site n/a Availability Equipment Marking: Verified: Does Patient Smoke No Patient states Yes Comment - Adult Spouse postop adult Supervision supervision available Case Cancelled in No Holding Area see comments below for reason Last Modified By: Nancy Estes RN 05/15/24 09:28:03 General Comments: Pt completed prep at 0430 and remained NPO since/ARCADIO,RN Finalized By: Nancy Estes RN Document Signatures Signed By: Nancy Estes RN 05/15/24 09:28 [facility] Outpatient Surgery Discharge Instructionon 05-15-2024 Outpatient Surgery Discharge Instruction Outpatient Surgery Discharge Instruction [place] [id number] Patient Discharge Instructions PERSON INFORMATION Name: OSORIO ANN Date of : 1955 Current Date: 05/15/2024 10:14:54 PHYSICIANS Admitting Physician: Jackson HUGHES MD Discharge Diagnosis: Sessile rectal polyp CADY ANNBERREILLY Daniels has been given the following list of follow-up instructions, prescriptions, and patient education materials: PATIENT FOLLOW-UP INFORMATION Diet: Regular Discharge Activity: Resume normal activities in 24 hours, Arrange for a responsible adult supervision for 24 hours Discharge Restrictions: No driving for 24 hrs, Do not operate machinery or tools, Do not make important decisions for 24 hours, Do not drink alcoholic beverages for 24 hours Call Your Doctor For: Persistent or heavy bleeding, Temperature above 101.5 degrees, Severe pain at the operative site, Persistent vomiting IF UNABLE TO CONTACT YOUR PHYSICIAN AND YOU FEEL IT IS AN EMERGENCY, GO TO THE NEAREST EMERGENCY ROOM OR CALL 911 IMARISSA KIMBERLY J, have received the attached patient education materials/instructions and have verbalized understanding: May we do a follow up call? Yes No I was present when discharge instructions were given _ Patient Signature Date Clinican/Nurse Signature Date Follow up: With: Address: When: [address], [address], [place] [id number] Business (1) Within 7 to 10 days Pharmacy Information: You may receive a survey from [email or web address] asking you to rate your care experience. Your feedback is important and will help us understand what we do well and how we can improve the quality of care we provide to you, your loved ones and our community. It???s an honor to serve you. Thank you for choosing [facility] HERE ARE THE MEDICATION CHANGES THAT OCCURRED DURING YOUR HOSPITAL STAY PATIENT EDUCATION INFORMATION Instructions: Medication Leaflets: [facility] Ambulatory Visit Summaryon 0 04-28-2024 Ambulatory Visit Summary Ambulatory Visit Summary OSORIO ANN :1955 Visit Date:04/28/2024 Ambulatory Visit Instructions Your Diagnosis Positive colorectal cancer screening using Cologuard test Your Care Team Attending Physician - XAVI VARGAS, Jackson eHredia Primary Care Physician - Arnold VARGAS, Ellen Ordaz Procedures Performed Colonoscopy (04/2012), EGD - esophagogastroduodenoscopy (04/2012), Appendectomy, Breast biopsy and related procedures, Cystoscopy, Lysis of adhesions, TREVER BSO - Total abdominal hysterectomy and bilateral salpingo-oophorectomy. Discharge Vitals Heart Rate (Peripheral) 71 Respiratory Rate 16 Blood Pressure 179/77 Height 165 cm Height 65 in Weight 77.8 kg Weight 171.519 lb BMI 28.58 Allergies Cefuroxime Axetil (Unknown) Demerol HCl (unknown) Eggs (Sensitivity) Milk Products (Sensitivity) Nuts Versed (Vomiting) amoxicillin (Diarrhea) aspirin (excessive bleeding) erythromycin (Headache) Problems Ongoing - Any problem that you are currently receiving treatment for. 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 Abdominal tenderness MVP - Mitral valve prolapse Renal Calculus Patient Survey You may receive a survey via text or e-mail asking about your office visit. Please share your experience with us by completing your survey. We appreciate your feedback and thank you for choosing us for your care. [facility] Provider Letteron 04-10-2024 Provider Letter Provider Letter April 10, 2024 OSORIO ANN [address] [place] [address] : 1955 Dear Ms. Ann, We have been trying to reach you with no success regarding a referral from Tiffany Shepherd. It is important that you return our call upon receiving this letter. Also, at the time of your call, please provide us with your current information. Thank you for your prompt attention to this matter. Sincerely, [facility] General Surgery [phone] [facility] CULTURE URINEon 04-28-2021 CULTURE URINE Culture Observations : NO GROWTH. Normal [facility] Comment on above: Performed By: #### U RCX #### [facility] [address] [place] [id number] Cristy Masterson MG MAMM SCREEN 3D JORGE CADon 09-13-2020 MG MAMM SCREEN 3D JORGE CAD Patient: OSORIO ANN Exam Date: 09/13/2020 : 1955 Gender:F Ordering : DR. MEGHANN CHUNG M.D. Admission #: [id number] Family : Order #: [id number] CLICK HERE TO VIEW EXAM RADIOLOGY REPORT PROCEDURE: MAMMOGRAM SCREENING 3D BILATERAL CAD COMPARISON: MG MAMM SCREEN JORGE W CAD, 12/26/2017. MG MAMM SCREEN JORGE W CAD, 12/03/2016. INDICATIONS: Screening mammography Calculator Name NCI Breast Cancer Risk Assessment Tool 5 Year Breast Cancer Risk 2.20% Lifetime Breast Cancer Risk 7.90% Personal Breast Cancer No Personal Ovarian Cancer No Treatments None Family Cancers None LOCATION: [facility] BREAST COMPOSITION: Heterogeneously dense,which may obscure small masses. FINDINGS: DIAGNOSTIC CATEGORY 2--BENIGN FINDING: RIGHT BREAST: No significant suspicious finding. Scattered benign-appearing calcifications are present. No significant change has occurred. LEFT BREAST: No significant suspicious finding. Scattered benign-appearing calcifications are present. No significant change has occurred. RECOMMENDATIONS: ROUTINE MAMMOGRAM AND CLINICAL EVALUATION IN 12 MONTHS. PLEASE NOTE: A NORMAL MAMMOGRAM DOES NOT EXCLUDE THE POSSIBILITY OF BREAST CANCER. A CLINICALLY SUSPICIOUS PALPABLE LUMP SHOULD BE BIOPSIED. Dictated by: Jorje Chacko M.D. on 09/13/2020 at 15:49 Approved by: Jorje Chacko M.D. on 09/13/2020 at 15:52 Normal [facility] Vital Signs Date Time Vital Sign Value Performing Clinician Bárbara leon 09-15-2024 12:52-0400 Body height 162.6 cm Tiffany Lópezr WEB MARKETING MANAGER Work Phone: [facility] 09-15-2024 12:52-0400 Body mass index (BMI) [Ratio] 29.35 kg/m2 Tiffany Noblesiller WEB MARKETING MANAGER Work Phone: [facility] 09-15-2024 12:52-0400 Body temperature 98.71 [degF] Tiffany Noblesiller WEB MARKETING MANAGER Work Phone: [facility] 09-15-2024 12:52-0400 Body weight 77.56 kg Tiffany Noblesiller WEB MARKETING MANAGER Work Phone: [facility] 09-15-2024 12:52-0400 Diastolic blood pressure 80 mm[Hg] Tiffany Noblesiller WEB MARKETING MANAGER Work Phone: [facility] 09-15-2024 12:52-0400 Heart rate 65 /min Tiffany Noblesiller WEB MARKETING MANAGER Work Phone: [facility] 09-15-2024 12:52-0400 SaO2% (BldA) [Mass fraction] 98 % Tiffany Noblesiller WEB MARKETING MANAGER Work Phone: [facility] 09-15-2024 12:52-0400 Systolic blood pressure 150 mm[Hg] Tiffany Noblesiller WEB MARKETING MANAGER Work Phone: [facility] 07-14-2024 09:00-0400 Body height 162.6 cm [facility] 07-14-2024 09:00-0400 Body mass index (BMI) [Ratio] 29.52 kg/m2 [facility] 07-14-2024 09:00-0400 Body weight 78.02 kg [facility] 06-23-2024 10:14-0400 Body height 162.6 cm Augustine Ding MD Work Phone: [facility] 06-23-2024 10:14-0400 Body mass index (BMI) [Ratio] 29.46 kg/m2 Augustine Ding MD Work Phone: [facility] 06-23-2024 10:14-0400 Body weight 77.84 kg Augustine Ding MD Work Phone: [facility] 05-21-2024 11:29-0400 Body height 162.56 cm [facility] 05-21-2024 11:29-0400 Body mass index (BMI) [Ratio] 29 kg/m2 [facility] 05-21-2024 11:29-0400 Body temperature 98.9 [degF] [facility] 05-21-2024 11:29-0400 Body weight 76.82 kg [facility] 05-21-2024 11:29-0400 Diastolic blood pressure 94 mm[Hg] [facility] 05-21-2024 11:29-0400 Heart rate 88 /min [facility] 05-21-2024 11:29-0400 Respiratory rate 16 /min [facility] 05-21-2024 11:29-0400 SaO2% (BldA) [Mass fraction] 100 % [facility] 05-21-2024 11:29-0400 Systolic blood pressure 176 mm[Hg] [facility] 04-28-2024 09:29-0500 Blood Pressure Location Jackson HUGHES [facility] 04-28-2024 09:29-0500 Diastolic blood pressure 77 mm[Hg] Jackson HUGHES [facility] 04-28-2024 09:29-0500 Heart rate 71 /min Jackson HUGHES [facility] 04-28-2024 09:29-0500 Respiratory rate 16 /min [facility] 04-28-2024 09:29-0500 Systolic blood pressure 179 mm[Hg] Jackson MACKEYL [facility] 05-09-2022 08:57-0400 Blood Pressure Location Lauren SALAM [facility] 05-09-2022 08:57-0400 Diastolic blood pressure 64 mm[Hg] Lauren SALAM [facility] 05-09-2022 08:57-0400 Heart rate 67 /min Lauren SALAM [facility] 05-09-2022 08:57-0400 Respiratory rate 16 /min Lauren SALAM [facility] 05-09-2022 08:57-0400 Systolic blood pressure 138 mm[Hg] Lauren SALAM [facility] Encounters Encounter Date Encounter Type Care Provider Facility Start: 09-22-2024 End: 09-22-2024 Follow-up encounter Tiffany Shepherd WEB MARKETING MANAGER Work Phone: [facility] Comment on above: Positive urine cultu re (Primary Dx) Start: 09-15-2024 End: 09-15-2024 Bamboo flowsheet Tiffany Shepherd WEB MARKETING MANAGER Work Phone: [facility] Start: 09-15-2024 End: 09-15-2024 Bamboo flowsheet Tiffany Shepherd WEB MARKETING MANAGER Work Phone: [facility] Start: 09-15-2024 End: 09-15-2024 Patient encounter procedure Tiffany Shepherd WEB MARKETING MANAGER Work Phone: [facility] Comment on above: Medicare annual well ness visit, subsequent (Primary Dx); Elevated blood pressure reading in office without diagnosis of hypertension; Right sided abdominal pain; Rib pain on right side; Other fatigue; Chills (without fever); Other problems related to lifestyle; BMI 29.0-29.9,adult; Overweight Start: 09-15-2024 End: 09-15-2024 ambulatory TIFFANY SHEPHERD Not Available Start: 07-30-2024 End: 07-30-2024 Telephone encounter Shaw Quezada MD Work Phone: [facility] In Start: 07-14-2024 End: 07-14-2024 Admission to [facility] Phone Call Provider 2 [facility]Ad[facility] On [facility] Start: 06-23-2024 End: 06-23-2024 Orders Only Morenita Navarrete CNA [facility] Comment on above: Rectal lesion (Prima ry Dx) Start: 06-23-2024 End: 06-23-2024 Office outpatient new 30 minutes Augustine Ding MD Work Phone: [facility] Comment on above: Rectal polyp (Primar y Dx) Start: 05-21-2024 End: 05-21-2024 Departed Referred Stephanie Sheffield APRN Work Phone: [facility] [place] Work Phone: Start: 05-21-2024 End: 05-21-2024 ambulatory Stephanie Sheffield [facility] Work Phone: Start: 05-21-2024 End: 05-21-2024 Patient encounter procedure [facility] [place] Work Phone: Start: 05-15-2024 End: 05-16-2024 ambulatory Jackson HUGHES Facility:[facility] Start: 04-28-2024 End: 04-28-2024 ambulatory Jackson HUGHES Facility: [facility] Start: 04-28-2024 End: 04-28-2024 Patient encounter procedure Jackson HUGHES [facility] [place] Start: 04-10-2024 ambulatory Jackson HUGHES Facility: [facility] Start: 04-02-2024 End: 04-02-2024 Telephone encounter Tiffany Shepherd NP Work Phone: [facility] Comment on above: Results Start: 03-19-2024 End: 03-25-2024 Telephone encounter Ellen Casillas MD Work Phone: [facility] Start: 05-09-2022 End: 05-09-2022 Patient encounter procedure Lauren SALAM [facility] Start: 12-26-2021 End: 12-26-2021 Patient encounter procedure Meghann Chung [facility] Start: 04-28-2021 End: 04-28-2021 ambulatory ELLEN CASILLAS Facility:[facility] Start: 12-20-2020 End: 12-20-2020 ambulatory GAMAL JORGE Facility:[facility] Start: 09-13-2020 End: 09-14-2020 ambulatory MEGHANN CHUNG Facility:[facility] Start: 05-17-2020 End: 05-18-2020 ambulatory NONE LISTED REQUEST Facility:[facility] Procedures Date Procedure Procedure Detail Performing Clinician Start: 07-21-2024 Colonoscopy Tiffany Shepherd NP Work Phone: Start: 01-24-2023 Mammography Ellen Casillas MD Work Phone: Start: 05-21-2012 Colonoscopy Ellen Casillas MD Work Phone: Start: 04-25-2012 Colonoscopy Jackson HUGHES Start: 04-25-2012 Esophagogastroduodenoscopy Jackson HUGHES Appendectomy Jackson HUGHES Breast biopsy and re lated procedures Meghann Chung Cystoscopy Jackson HUGHES Lysis of adhesions [place] Partial hysterectomy Meghann echevarria Total abdominal hyst erectomy with bilateral salpingo-oophorectomy Jackson HUGHES Plan of Treatment Date Care Activity Detail Author Start: 07-21-2034 Screening for malign ant neoplasm of colon [facility] Start: 09-28-2028 DTaP,Tdap and Td Vaccines (2 - Td or Tdap) DTaP,Tdap and Td Vaccines (2 - Td or Tdap) [facility] Start: 03-26-2027 Screening for malign ant neoplasm of colon [facility] Start: 09-15-2025 Medicare Annual Well ness (AWV) Medicare Annual Wellness (AWV) [facility] Start: 07-21-2025 Tobacco Screening Tobacco Screening [facility] Start: 07-14-2025 Adult BMI Screening Adult BMI Screen ing [facility] Start: 07-14-2025 Tobacco Screening Tobacco Screening [facility] Start: 06-23-2025 Adult BMI Screening Adult BMI Screen ing [facility] Start: 06-23-2025 Tobacco Screening Tobacco Screening [facility] Start: 10-26-2024 Influenza vaccination [facility] Start: 09-15-2024 End: 09-15-2025 CBC W Auto Differential panel - Blood CBC and differential Lab Routine Right sided abdominal pain Other fatigue Chills (without fever) Expected: 09/15/2024 (Approximate), Expires: 09/15/2025 [facility] Work Phone: Comment on above: Expected: 09/15/2024 (Approximate), Expires: 09/15/2025 Start: 09-15-2024 End: 09-15-2025 Comprehensive metabolic 2000 panel - Serum or Plasma Comprehensive metabolic panel Lab Routine Right sided abdominal pain Other fatigue Chills (without fever) Expected: 09/15/2024 (Approximate), Expires: 09/15/2025 [facility] Comment on above: Expected: 09/15/2024 (Approximate), Expires: 09/15/2025 Start: 09-15-2024 End: 09-15-2025 Hcv antibody rfx to quant pcr Hcv antibody rfx to quant pcr Lab Routine Other problems related to lifestyle Expected: 09/15/2024 (Approximate), Expires: 09/15/2025 [facility] Comment on above: Expected: 09/15/2024 (Approximate), Expires: 09/15/2025 Start: 09-15-2024 End: 09-15-2025 Lipase [Enzymatic activity/volume] in Serum or Plasma Lipase Lab Routine Right sided abdominal pain Expected: 09/15/2024 (Approximate), Expires: 09/15/2025 [facility] Comment on above: Expected: 09/15/2024 (Approximate), Expires: 09/15/2025 Start: 09-15-2024 End: 09-15-2025 Urinalysis with microscopic (reflex culture if indicated) Urinalysis with microscopic (reflex culture if indicated) Lab Routine Right sided abdominal pain Other fatigue Chills (without fever) Expected: 09/15/2024 (Approximate), Expires: 09/15/2025 [facility] Comment on above: Expected: 09/15/2024 (Approximate), Expires: 09/15/2025 Start: 09-15-2024 End: 09-15-2024 Patient encounter procedure 09/15/2024 12:40 PM EDT Office Visit LIZ GARC[address]A [address] [place] [address] Tiffany Shepherd NP [address] [place] [address] Arrived [facility] Comment on above: Arrived Start: 07-21-2024 End: 07-21-2024 Admission to same day surgery center 07/21/2024 11:00 AM EDT - 07/21/2024 12:15 PM EDT Surgery [facility] Endoscopy [address] [place] [id number] Toan Bae MD [address] [facility] [address] [place] [address] COLONOSCOPY ENDOSCOPIC MUCOSAL RESECTION [[id number] ([facility] [facility]PITAL )] [facility] Comment on above: COLONOSCOPY ENDOSCOP IC MUCOSAL RESECTION [19835 (CPT )] Start: 07-21-2024 End: 07-21-2024 Colonoscopy flx w/endoscopic mucosal resection COLONOSCOPY ENDOSCOPIC MUCOSAL RESECTION RECTAL LEGION 07/21/2024 11:00 AM EDT [facility] Start: 07-21-2024 Subsequent hospital visit by physician 07/21/2024 11:00 AM EDT Hospital Encounter [facility] [address] [place] [id number] Toan Bae MD [address] [facility] [address] [place] [address] [facility] Start: 05-21-2024 Bacteria identified in Urine by Culture Urine Culture [facility] Start: 05-21-2024 Urine culture [facility] Start: 05-17-2024 COVID-19 Vaccine () COVID-19 Vaccine () [facility] Start: 03-19-2024 End: 05-17-2025 DBT Breast - bilateral screening Bilateral screening mammogram with tomosynthesis Imaging Routine Encounter for screening mammogram for malignant neoplasm of breast Expected: 03/19/2024, Expires: 05/17/2025 [facility] Work Phone: Comment on above: Expected: 03/19/2024 , Expires: 05/17/2025 Start: 03-19-2024 End: 03-19-2025 Noninvasive colorectal cancer DNA and occult blood screening [Presence] in Stool Cologuard colon cancer screening Lab Routine Screening for colon cancer Expected: 03/19/2024 (Approximate), Expires: 03/19/2025 [facility] Comment on above: Expected: 03/19/2024 (Approximate), Expires: 03/19/2025 Start: 01-25-2024 Screening for malign ant neoplasm of breast Mammogram [facility] Start: 12-27-2023 Medicare Annual Well ness (AWV) Medicare Annual Wellness (AWV) [facility] Start: 11-09-2023 Screening for malign ant neoplasm of colon [facility] Start: 10-27-2023 Influenza vaccination Influenza Vacc ine (#1) [facility] Start: 05-21-2022 Screening for malign ant neoplasm of colon Colonoscopy [facility] Start: 2019 Fall Risk Screening Fall Risk Screen ing [facility] Start: 2019 Pneumococcal Vaccine : 65+ Years (1 of 1 - PCV) Pneumococcal Vaccine: 65+ Years (1 of 1 - PCV) [facility] Start: 2004 Administration of varicella zoster vaccine Zoster (Shingles) Vaccine (1 of 2) [facility] Start: 2004 Pneumococcal Vaccine : 65+ Years (1 of 1 - PCV) Pneumococcal Vaccine: 65+ Years (1 of 1 - PCV) [facility] Start: 1972 Adult BMI Follow Up Plan Adult BMI Follow Up Plan [facility] Start: 1966 Depression Screening Depression Scre ening [facility] Start: 1966 Tobacco Screening Tobacco Screening [facility] Start: 1955 Screening for malign ant neoplasm of colon [facility] End: 06-23-2025 Basic metabolic 2000 panel - Serum or Plasma Basic Metabolic Panel Lab Routine Rectal lesion 1 Occurrences starting 06/23/2024 until 06/23/2025 [facility] Comment on above: 1 Occurrences starti ng 06/23/2024 until 06/23/2025 End: 06-23-2025 CBC W Auto Differential panel - Blood CBC auto differential Lab Routine Rectal lesion 1 Occurrences starting 06/23/2024 until 06/23/2025 [facility] Work Phone: Comment on above: 1 Occurrences starti ng 06/23/2024 until 06/23/2025 Immunizations Immunization Date Immunization Notes Care Provider Fa cility 11-06-2021 SARS-CoV-2 (COVID-19 ) [id number] Leonidas FITZPATRICK [facility] Comment on above: Result Comment: 2022: [id number] 05-25-2021 SARS-CoV-2 mRNA (florcifoenm-kpyv-fpm tracy) vaccine Leonidas FITZPATRICK [facility] Comment on above: Result Comment: 2022: [id number] 05-25-2021 SARS-CoV-2, Unspecified Ellen Casillas MD Work Phone: [facility] 12-20-2020 SARS-CoV-2 (COVID-19 ) mRNA BNT-162b2 vax Lauren SALAM [facility] 05-17-2020 SARS-CoV-2 (COVID-19 ) mRNA BNT-162b2 vax Lauren SALAM [facility] 04-25-2020 SARS-CoV-2 (COVID-19 ) mRNA BNT-162q5 vax Lauren SALAM [facility] 09-28-2018 tetanus toxoid, reduced diphtheria toxoid, and acellular pertussis vaccine, adsorbed Meghann Sheldon [facility] NEGATED: Highlighted row has not occurred!05-09-2022 influenza virus vaccine, unspecified formulation Lauren SALAM [facility] Payers Date Payer Category Payer Commercial Indemnity [facility] [id number] 2019 Medicare [id number] 1959 Medicare [id number] 1959 Self-pay 1959 Unknown [id number] 1955 Unknown [id number] 93 1954 Unknown [id number] 93 1954 Unknown [id number] 93 1954 Unknown [id number] 27 1954 Unknown [id number] 27 1954 Unknown [id number] 27 1954 Unknown [id number] 259 Unknown [id number] 93 Unknown [id number] 31 Social History Date Type Detail Facility Start: 09-22-2018 End: 12-25-2022 Tobacco smoking status Never smoked tobacco (finding) [facility] Start: 12-26-2022 End: 09-15-2024 Sex Assigned At Female [facility] Start: 12-25-2022 End: 06-23-2024 Tobacco use and exposure Smokeless tobacco non-user [facility] Start: 12-26-2022 End: 09-15-2024 Alcoholic beverage intake Ex-drinker (finding) [facility] Start: 12-26-2022 End: 09-15-2024 History of Social function [facility] Start: 1955 Sex assigned at Not on file [facility] Tobacco smoking status Never [facility] Start: 05-21-2024 End: 05-26-2024 Sex Female (finding) [facility] Start: 1955 Sex Assigned At Female [facility] Start: 06-23-2024 End: 07-21-2024 Alcoholic beverage intake Lifetime non-drinker (finding) [facility] Goals Date Patient Goal Desired Activity /State Personal health goal Functional Status Date Assessment Result Facility 09-15-2024 Patient Health Quest ionnaire 2 item (PHQ-2) [Reported] [facility] 04-28-2024 Functional Status N/A [facility] 05-09-2022 Functional Status N/A [facility] Clinical Notes 03-19-2024 to 09-22-2024 Telephone Encounter - Tiffany Shepherd NP - 09/22/2024 4:43 PM EDTTelephone Encounter - Tiffany Shepherd NP - 09/22/2024 4:43 PM EDTTiffany Shepherd NP - 09/15/2024 12:40 PM EDT Note Date & Type Note Facility 09-22-2024 Telephone encounter Note Rx sent. [facility] 09-22-2024 Miscellaneous Notes Rx sent. Pt notified, will proceed with antibiotic would like sent to [facility] Notify patient - urine culture with bacterial growth - will send rx for antibiotic. Be sure to stay well hydrated. Blood counts stable, kidney and liver fx stable, hep c screening negative. documented in this encounter [facility] 09-22-2024 Telephone encounter Note Pt notified, will proceed with antibiotic would like sent to [facility] 09-22-2024 Telephone encounter Note Notify patient - urine culture with bacterial growth - will send rx for antibiotic. Be sure to stay well hydrated. Blood counts stable, kidney and liver fx stable, hep c screening negative. [facility] 09-15-2024 History of Presen t illness Narrative Images from the original note were not included. Osorio Ann is a 69 y.o. female presents with chief complaint of Back Pain and Medicare Annual Wellness Visit Subsequent HPI: Osorio Ann is an 69 y.o. female here today for an annual wellness visit. Medicare Annual Visit Over the past 2 weeks, how often have you been bothered by any of the following problems? Little interest or pleasure in doing things: Not at all Feeling down, depressed, or hopeless: Not at all Patient Health Questionnaire-2 Score: 0 Gupta Fall Risk History of Falling, Immediate or Within 3 Months: No Health Risk Assessment Form Do you need help eating, bathing, using the toilet, dressing, or getting around your home?: No Can you prepare your own meals?: Yes Can you do your own housework without help?: Yes Can you shop for groceries or clothes without help?: Yes Do you exercise for about 20 minutes 3 or more days a week?: No How confident are you that you can control and manage most of your health problems?: Very confident Can you mange your money, credit cards and accounts, pay bills and taxes?: Yes Cognitive Screening Three Word Registration: Apple, Watch, Camille Clock Drawing: Normal Clock - 2 Three Word Recall: All 3 words correct - 3 Total Score (0-5 Points): 5 Pain Assessment Pain Score: 8 Advance Care Planning Discussed History of Present Illness The patient is a 69-year-old female who presents for evaluation of pain. She has been experiencing pain in her right rib cage area for the past 12 days, which she initially attributed to a strain due to her history of fibromyalgia. The pain is constant and exacerbated by movement, but subsides when she remains still. She describes the pain as sharp and dull, similar to the sensation of kidney stones, which she has experienced at least three times in the past. She reports no improvement in her condition over time. The pain is aggravated by bending, lifting light objects, and walking. She reports no nausea or vomiting. She reports no recent falls or injuries but mentions that she had been doing yard work involving reaching up and bending prior to the onset of the pain. She has not tried heat or ice therapy for her pain. She reports no rashes but notes increased fatigue, which she initially thought was due to ibuprofen. She also reports occasional chills. She does not consume alcohol or smoke. She reports no pain with deep breathing but experiences discomfort when coughing. She has been managing the pain with ibuprofen, which provides some relief, but the pain persists. She last took ibuprofen on 09/13/2024 at 8 PM. She has a history of full hysterectomy and appendectomy at age 28, and endometriosis. She has not had a mammogram due to stress over the past year. She had a colonoscopy on 07/22/2024 during which a flat polyp was removed and biopsied, with normal results. Her initial colonoscopy was on 05/08/2024 where a polyp was found and removed in the hospital. Her blood pressure is always high when she comes to the clinic. Social History: Alcohol: She does not consume alcohol. Tobacco: She does not smoke. Sleep: She reports sleeping 9 hours last night and has been taking naps. PAST SURGICAL HISTORY: Full hysterectomy and appendectomy at age 28 Colonoscopy on 07/22/2024 with flat polyp removal Colonoscopy on 05/08/2024 with polyp removal in the hospital FAMILY HISTORY Her mother and half-sister had their gallbladders removed. SUBJECTIVE: ALLERGIES: Allergies Allergen Reactions Amoxicillin Diarrhea Aspirin Cefuroxime Other Reaction(s): Unknown Erythromycin Headache Lactose Intolerance (Gi) Other Reaction(s): Sensitivity Meperidine Midazolam Other Other Reaction(s): Sensitivity MEDICATIONS: Current Outpatient Medications Medication Instructions predniSONE (Deltasone) 20 MG tablet 3 tablets for 3 days, then 2 tablets for 3 days, then 1 tablet for 3 days then stop tiZANidine (ZANAFLEX) 4 mg, Oral, Every 8 hours PRN REVIEW OF SYMPTOMS: Constitutional: Denies fever, anorexia. Notes fatigue and chills. Musculoskeletal: RT rib, RT upper abdomina pain. Skin: Denies new skin lesions, rash. Respiratory: Denies cough, wheezing or difficulty breathing. Endocrine: Denies frequent urination, increased thirst. Neurologic: Denies weakness, numbness or tingling, headaches. Gastrointestinal: Denies bloody or black bowel movements, change in bowel habits. Genitourinary: Denies dysuria, hematuria, frequency or urgency. Obejctive: Visit Vitals BP 150/80 (BP Location: Right arm, Patient Position: Sitting, BP Cuff Size: Adult) Pulse 65 Temp 98.7 F Ht 5' 4 Wt 171 lb SpO2 98% BMI 29.35 kg/m OB Status Postmenopausal Smoking Status Never BSA 1.87 m BP Readings from Last 3 Encounters: 09/15/24 150/80 12/26/22 126/80 12/19/21 130/88 Wt Readings from Last 3 Encounters: 09/15/24 171 lb 12/26/22 165 lb 12/19/21 171 lb 3.2 oz General: Well developed, well nourished, in no acute distress sitting upright in chair. Head: Normocephalic/atraumatic. Eyes: No conjunctival irritation. No icterus. Ears: Grossly normal hearing. Nose: No discharge. Mouth: MMM, talkative. Neck: Supple. Chest: No distress. Discomfort with palpation to right lateral ribs, along ribs 6/7 no overlying skin changes. Lungs: Normal respiratory effort and clear to auscultation. No rhonchi or wheeze. Cardio: RRR, without murmur. Abdomen: Normal bowel sounds noted. Abdomen is soft and nontender. Musculoskeletal: Steady gait. Neurologic: Grossly normal. Skin: Skin is warm and dry. Mental Status: Alert and cooperative. Tearful at times. Results Diagnostic Testing - Colonoscopy: 07/22/2024, Flat polyp removed and biopsied, results were normal No results found for: HGBA1C Lab Results Component Value Date CREATININE 0.7 09/13/2020 ASSESSMENT AND PLAN: Assessment & Plan 1. Pain. - The pain could be due to a variety of causes, including musculoskeletal issues, gallbladder problems, or kidney stones. The possibility of shingles was also considered. - Physical exam findings include tenderness in specific areas, no rash observed, and pain with certain movements but not with deep breaths. - Most likely musculoskeletal. Patient would like to proceed with labs and urine sample. - A prescription for prednisone and a muscle relaxant will be provided, with instructions to take prednisone at night with food. She is advised to apply ice to the affected area for 20 minutes on and 40 minutes off throughout the day. If there is no improvement with the current treatment plan, further diagnostic tests will be considered. 2. Elevated blood pressure. - Blood pressure is elevated today at 150/80, but this is not consistent with her previous readings. - Likely due to her current pain. - No additional treatment for blood pressure at this time. Monitor at home, follow up if remains elevated. 3. Health maintenance. - She had a colonoscopy on 07/22/2024 during which a flat polyp was removed and biopsied, with normal results. Her initial colonoscopy was on 05/08/2024 where a polyp was found and removed in the hospital. - She has not had a mammogram since due to stress. - A hepatitis C screening will be included in the lab work as recommended by the CDC for individuals born between 1945 and 1965. - No immediate treatment required, but follow-up on mammogram is advised. Assessment/Plan Diagnoses and all orders for this visit: Medicare annual wellness visit, subsequent Reviewed age appropriate USPSTF's recommendations for preventative services and all current CDC recommended immunizations, relevant risk recommendations. CDC-Falls Prevention and home safety reviewed. [place] Advance Directives reviewed. Patient denies any problems with ADL's and Instrumental ADL's. Fall Risk Assessment reviewed. Fall Safety and Allergies and medications reviewed and up to date. Labs reviewed and ordered. Elevated blood pressure reading in office without diagnosis of hypertension Right sided abdominal pain - CBC and differential; Future - Comprehensive metabolic panel; Future - Urinalysis with microscopic (reflex culture if indicated); Future - Lipase; Future Rib pain on right side - predniSONE (Deltasone) 20 MG tablet; 3 tablets for 3 days, then 2 tablets for 3 days, then 1 tablet for 3 days then stop - tiZANidine (Zanaflex) 4 MG tablet; Take 1 tablet (4 mg) by mouth every 8 (eight) hours if needed for muscle spasms Other fatigue - CBC and differential; Future - Comprehensive metabolic panel; Future - Urinalysis with microscopic (reflex culture if indicated); Future Chills (without fever) - CBC and differential; Future - Comprehensive metabolic panel; Future - Urinalysis with microscopic (reflex culture if indicated); Future Other problems related to lifestyle - Hcv antibody rfx to quant pcr; Future BMI 29.0-29.9,adult Routine physical exercise and a healthy diet to promote weight reduction and improve overall health encouraged. Overweight Routine physical exercise and a healthy diet to promote weight reduction and improve overall health encouraged. Please Note: Portions of this chart may have been created using voice recognition software. Occasional wrong-word or sound-like substitutions may have occurred due to inherent limitations of the voice recognition software. Please read the chart carefully and recognize, using context, where the substitutions have occurred. documented in this encounter [facility] 07-30-2024 Miscellaneous Notes Reviewed pathology from colonoscopy 07/21/2024 that showed benign polyps. Patient will need repeat colonoscopy in 6 months to review EMR sites. Will also need EGD at the same time for evaluation of dysphagia and heartburn. Will ask office staff to notify patient and arrange for EGD and colonoscopy in 6 months. Shaw Quezada MD Gastroenterology Fellow [facility] 07/30/24 10:39 AM documented in this encounter [employer] 07-30-2024 Telephone encounter Note Reviewed pathology from colonoscopy 07/21/2024 that showed benign polyps. Patient will need repeat colonoscopy in 6 months to review EMR sites. Will also need EGD at the same time for evaluation of dysphagia and heartburn. Will ask office staff to notify patient and arrange for EGD and colonoscopy in 6 months. Shaw Quezada MD Gastroenterology Fellow [facility] 07/30/24 10:39 AM [employer] Work Phone: 06-23-2024 History of Presen t illness Narrative Images from the original note were not included. Assessment: Osorio Ann is a 69 y.o.female with 1. Flat irregular polyp in the rectum, pathology showed - fragmented tubulovillous adenoma (Colonoscopy on 04/[address] Hughes at [facility]) 2. Positive cologuard 3. BMI 29 Plan: Colonoscopy was performed on 05/14/[address] Hughes - Flat irregular polyp in the rectum, pathology showed - fragmented tubulovillous adenoma. Explained that upon reviewing her colonoscopy images, there is a chance that the rectal polyp can be removed via EMR or ESD by GI. I will place a referral to GI to evaluate the patient to see if she is a candidate for EMR or ESD removal. If she is not a candidate for EMR, discussed that I will perform a flexible sigmoidoscopy first and then proceed with surgical removal. Will need baseline lab work. Will follow up pending evaluation with GI. CHIEF COMPLAINS: 1. Flat irregular polyp in the rectum, pathology showed - fragmented tubulovillous adenoma (Colonoscopy on 04/[address] Hughes at [facility]) 2. BMI 29 History of Present Illness: Osorio Ann is a 69 y.o. female with rectal tubulovillous adenoma. COLONOSCOPY (05/15/2024): Past Medical History: Diagnosis Date Fibrocystic breast Mitral valve prolapse Past Surgical History: Procedure Laterality Date APPENDECTOMY BREAST BIOPSY COLONOSCOPY HYSTERECTOMY Allergies: Allergies Allergen Reactions Amoxicillin Demerol [Meperidine] Versed [Midazolam] Nausea Medications: No current outpatient medications on file. Review of System: Ten systems were reviewed and were otherwise negative Social History Socioeconomic History Marital status: Spouse name: Not on file Number of children: Not on file Years of education: Not on file Highest education level: Not on file Occupational History Not on file Tobacco Use Smoking status: Never Smokeless tobacco: Never Vaping Use Vaping status: Never Used Substance and Sexual Activity Alcohol use: Never Drug use: Never Sexual activity: Defer Other Topics Concern Not on file Social History Narrative Not on file Social Drivers of Health Financial Resource Strain: Not on file Food Insecurity: No Food Insecurity (06/23/2024) Hunger Screening Food Insecurity - Worry: Never True Food Insecurity - Inability: Never True Transportation Needs: Not on file Physical Activity: Not on file Stress: Not on file Social Connections: Not on file Interpersonal Safety: Not on file Housing Instability: Not on file Family History: History reviewed. No pertinent family history. ON EXAMINATION: CONST: Comfortable, alert, oriented X 3. Ht 162.6 cm (5' 4 ) Wt 77.8 kg (171 lb 9.6 oz) BMI 29.46 kg/m EYES: No jaundice NEURO: GCS 15, Motor 5/5, CN grossly intact, sensory intact. Cardiorespiratory: Clear to auscultation. S1-S2 positive GI: Abdomen soft, non-tender, non-distended. Anorectal exam: Inspection: Digital rectal exam: Anoscopy: MSK: No joint swelling, no edema. SKIN: no jaundice Labs: Imaging: On our independent review of the imaging involved, No results found. Scribe Statement: So Coy, scribed for and in the presence of AUGUSTINE DING MD who performed the above service. Provider Statement Augustine Coy MD, personally performed the services described in the documentation as scribed by So Lynn in my presence, and it is both accurate and complete. Patient was examined in the presence of a wheel filler This note was created with the assistance of a speech recognition program. While intending to generate a timely document that accurately reflects the content of the visit, no guarantee can be provided that every grammatical or spelling mistake has been or will be identified or corrected. Thank you for your understanding. Augustine Ding MD, MS, FACS Board Certified in the Colon & Rectal Surgery Board Certified in General Surgery Minimally Invasive Laparoscopic and Robotic Surgery [address] / [facility] [address] [facility] [address] Office: [phone] [facility] Office: [phone] [email or web address] documented in this encounter [facility] 05-21-2024 Evaluation note Diagnosis Onset Date Resolution Acute cystitis with hematuria noneactive May 21, 2024 11:11am Dysuria noneactive May 21 11:11am Rectal itching noneactive April 11:11am [facility] Work Phone: 1(592) 467-450603-21-2025 NoteColonoscopy Procedure Report Patient: OSORIO ANN Age: 69 years Sex: Female : 1955 Associated Diagnoses: None Author: Jackson HUGHES MD Pre-Procedure Procedure Date 05/15/2024 10:10:00 . Procedure Type: Colonoscopy with biopsy. Procedure provider Jackson Hughes MD. Referred by Tammy Casillas MD. Current history and physical Documented on chart. Colorectal neoplasm risk assessment Average risk. Informed Consent After discussing the rationale, risks and benefits, and alternatives to this procedure, the patient provided signed consent for the procedure. Pre-procedure diagnosis: Screening: positive Cologuard. ASA Classification: Class II. . Monitoring: See anesthesia record. . Procedure The procedure was performed in the hospital. See anesthesia record for sedation given during procedure. Rectal exam was performed and was normal. The patient was positioned starting in the left lateral decubitus position. Endoscope type used was a pediatric-size. The endoscope was lubricated then introduced through the anus. The scope was advanced to the cecum verified by photographing the appendiceal orifice, verified by photographing the ileocecal valve. No difficulties encountered during theprocedure. The bowel preparation quality was good and was adequate (see polyps greater than or equal to 6 millimeters). The patient tolerated the procedure well. Findings A single polyp 2.5 cm in size was noted. The polyp was located in the rectum. The polyp(s) is sessile (0-Is). Classification: flat irregular polyp around fold, at 10 cm from anal verge The polyp(s) is characterized as soft consistency. Intervention(s) included biopsy. Post-Procedure Complications: none. Estimated blood loss: 1 milliliters. Specimens: sent to pathology. Devices/ implants: none left in place. Impression and Plan Diagnosis: Sessile rectal polyp ([id number] K62.1, Discharge, Medical). Course: Progressing as expected. Recommendations: Repeat colonoscopy:: In 1 year, 1 year after removal . Follow-up:: Await biopsy results in 3-5 days. Diet:: Regular diet. Medication resumption:: Continue current medications. Return to activities:: After 24 hours. Education and Follow-up: Counseled: Family.[facility]03-21-2025 NotePatient Education - Text Colonoscopy Care After Surgery Please read the instructions outlined below and refer to this sheet in the next few weeks. These discharge instructions provide you with general information on caring [facility] Your doctor may also give you specific instructions. While your treatment has been planned according to the most current medical practices available, unavoidable complications occasionally occur. If you have any problems or questions after discharge, please call your doctor. ACTIVITY You may resume your regular activity, but move at a slower pace for the next 24 hours. Take frequent rest periods for the next 24 hours. Walking will help get rid of the air and reduce the bloated feeling in your abdomen (belly). No driving for 24 hours (because of the anesthesia (medicine) used during the test). You may shower. Do not sign any important legal documents or operate any machinery for 24 hours (because of the anesthesia used during the test). NUTRITION Drink plenty of fluids. You may resume your normal diet as instructed by your doctor. Begin with a light meal and progress to your normal diet. Heavy or fried foods are harder to digestand may make you feel nauseated (sick to your stomach). Avoid alcoholic beverages for 24 hours or as instructed. MEDICATIONS You may resume your normal medications unless your doctor tells you otherwise. WHAT YOU CAN EXPECT TODAY Some feelings of bloating in the abdomen. Passage of more gas than usual. Spotting of blood in your stool or on the toilet paper. FOLLOW-UP Your doctor will discuss the results of your test with you. SEEK IMMEDIATE MEDICAL ATTENTION IF: There is more than a spotting of blood in your stool. There is abdominal distention (your abdomen is swollen). There is vomiting. You have a temperature over 101.5 F. There is abdominal pain or discomfort that is severe or gets worse throughout the day.[facility]03-21-2025 NoteHistory and Physical Patient: OSORIO ANN Age: 69 years Sex: Female : 1955 Associated Diagnoses: None Author: Jackson HUGHES MD Subjective no changes to & PFOhioHealth Riverside Methodist HospitalComment on above:Result Comment: Electronically Signed By: Jackson HUGHES MD\.br\Date and Time Signed: 05/15/24 10:15 [id number] NoteProgress Note-Physician Patient: OSORIO ANN Age: 69 years Sex: Female : 1955 Associated Diagnoses: None Author: Jackson Spears MD Postoperative Information Postoperative disposition: Postoperative disposition: To PACU. Optimetrix number: Optimetrix number [id number]. Anesthetic utilized: General. Health Status Allergies: Allergic Reactions (Selected) Severity Not Documented Aspirin- Excessive bleeding. Cefuroxime Axetil- Unknown. Demerol HCl- Unknown. Nuts- No reactions were documented. Nonallergic Reactions (Selected) Severity Not Documented Amoxicillin- Diarrhea. Eggs- Sensitivity. Erythromycin- Headache. Milk Products- Sensitivity. Versed- Vomiting. Physical Examination Vital Signs 05/15/2024 9:26 EDT Heart Rate Monitored 72 bpm 05/15/2024 9:26 EDT SpO2 99 % 05/15/2024 9:26 EDT Temperature Temporal Artery 36 DegC LOW Respiratory Rate 18 br/min Systolic Blood Pressure 156 mmHg HI Diastolic Blood Pressure 80 mmHg Blood Pressure Location Left arm Pain Assessment: Controlled. General: Awake, Alert, Appropriate. Respiratory: Adequate air exchange. Cardiovascular: Stable, Normal peripheral perfusion. Neurological: Normal sensory function, Normal motor function. Assessment Anesthetic outcome No anesthetic complications noted. Adequate pain relief. able to void without difficulty, able to ambulate with assist, tolerating PO intake, no N/V. Review / Management Condition: Stable. Plan Transfer/Discharge: Transfer/Discharge Discharge when meets criteria ( From PACU to floor ).[facility]:Result Comment: Electronically Signed By: Regan VARGAS, Jackson Parrish\.br\Date and Time Signed: 05/15/2508:57 [id number] NoteProgress Note-Physician Patient: OSORIO ANN Age: 69 years Sex: Female : 1955 Associated Diagnoses: None Author: Jackson Spears MD Preoperative Information Anesthesia history: Patient history: No prior anesthetic problems. Informed consent: Signed by patient. Re-evaluation prior to induction: Initial evaluation reviewed: No significant change. Review of Systems Respiratory: Negative except as documented in history of present illness. Cardiovascular: Negative except as documented in history of present illness. Health Status Allergies: Allergic Reactions (Selected) Severity Not Documented Aspirin- Excessive bleeding. Cefuroxime Axetil- Unknown. Demerol HCl- Unknown. Nuts- No reactions were documented. Nonallergic Reactions (Selected) Severity Not Documented Amoxicillin- Diarrhea. Eggs- Sensitivity. Erythromycin- Headache. Milk Products- Sensitivity. Versed- Vomiting., Allergies (9) Active Severity Reaction Nuts None Documented amoxicillin Diarrhea Cefuroxime Axetil Unknown erythromycin Headache Milk Products Sensitivity Eggs Sensitivity aspirin excessive bleeding Demerol HCl unknown Versed Vomiting Current medications: (Selected) Inpatient Medications Ordered Sodium Chloride 0.9% IV Maggie 1000 mL 1,000 mL: 1,000 mL, IV, 20 mL/hr, Routine, Start date 05/15/24 6:46:00 EDT, 50 hour(s), Total volume (mL): 1,000, 77.8 kg, 1.89, m2, No qualifying data available , Medications (1) Active Scheduled: (0) Continuous: (1) Sodium Chloride 0.9% 1,000 mL 1,000 mL, IV, 20 mL/hr PRN: (0) Problem list: All Problems BMI 28.0-28.9,adult / SNOMED CT 1424255593 / Confirmed Dysphagia / SNOMED CT 30579007 / Confirmed Feeling of incomplete bladder emptying / SNOMED CT 310788695 / Confirmed Frequent urination / SNOMED CT 254414079 / Confirmed Hiatal hernia / SNOMED CT 017969514 / Confirmed History of kidney stones / SNOMED CT 7528340456 / Confirmed Incontinence without sensory awareness / SNOMED CT 6201976674 / Confirmed Microhematuria / SNOMED CT 470261539 / Confirmed Nocturia / SNOMED CT 967316225 / Confirmed Overweight / SNOMED CT 210956805 / Confirmed Positive colorectal cancer screening using Cologuard test / SNOMED CT 5267304835 / Confirmed Post-void dribbling / SNOMED CT 886123020 / Confirmed Stress incontinence / SNOMED CT 058520819 / Confirmed Urethral stricture due to infection / SNOMED CT 390103905 / Confirmed Urge incontinence / SNOMED CT 687178189 / Confirmed Resolved: Abdominal tenderness / SNOMED CT 78303394 Resolved: MVP - Mitral valve prolapse / SNOMED CT 7614052889 Resolved: Renal Calculus Canceled: Difficulty swallowing / SNOMED CT 52115544 Canceled: Dysuria / SNOMED CT 31437786 Canceled: HH (hiatus hernia) / SNOMED CT 947660232 Canceled: History of UTI / SNOMED CT 1257373938 Canceled: Screen for colon cancer / SNOMED CT 215946750, Active Problems (15) BMI 28.0-28.9,adult Dysphagia Feeling of incomplete bladder emptying Frequent urination Hiatal hernia History of kidney stones Incontinence without sensory awareness Microhematuria Nocturia Overweight Positive colorectal cancer screening using Cologuard test Post-void dribbling Stress incontinence Urethral stricture due to infection Urge incontinence Histories Past Medical History: Resolved Renal Calculus: Resolved. MVP - Mitral valve prolapse (0822364941): Resolved. Abdominal tenderness (40376439): Resolved. Family History: Hypertension Father Mother Congenital heart disease Father Procedure history: Colonoscopy (250547256) in the month of 04/2012 at 57 Years. EGD - esophagogastroduodenoscopy (8465241966) in the month of 04/2012 at 57 Years. Breast biopsy and related procedures (084590718). Cystoscopy (672851508). [facility] BSO - Total abdominal hysterectomy and bilateral salpingo-oophorectomy (0419272246). Appendectomy (083495134). Lysis of adhesions (39885785). Social History Social & Psychosocial Habits Alcohol 04/28/2024 Risk Assessment: Denies Alcohol Use 04/28/2024 Use: Never Comment: denies - 05/09/2022 09:00 - Larry, Sara I Substance Abuse 04/28/2024 Risk Assessment: Denies Substance Abuse 04/28/2024 Use: Never Comment: denies - 05/09/2022 09:00 - Larry, Sara I Tobacco 04/28/2024 Risk Assessment: Denies Tobacco Use 04/28/2024 Tobacco Use: Never (less than 100 in l Smokeless tobacco use: Never . Physical Examination Vital Signs (last 24 hrs) Last Charted Weight 77.8 kg (MAY 15 09:14) Airway: Mallampati classification: II (soft palate, fauces, uvula visible). Respiratory: Lungs are clear to auscultation, Respirations are non-labored. Cardiovascular: Regular rhythm. Review / Management Results review: No qualifying data available . Plan [place] [employer]hesiologists (ASA) physical status classificatio (more content not included)...[facility] HospitalComment on above:Result Comment: Electronically Signed By: Regan VARGAS, Jackson Parrish\.br\Date and Time Signed: 05/15/2508:24 [id number] NoteGeneral Surgery Office/Clinic Note Chief Complaint consultation for positive Cologuard HPI Staff 69 year old female presents on consultation from [facility] for positive Cologuard. Deniesabdominal or rectal pain. No rectal bleeding or change in bowel habits. Denies nausea or vomiting. No unexplained weight loss. Last colonoscopy completed 03/2012- normal. No known family history of colon cancer. History of Present Illness 69 yo female referred for positive Cologuard; denies change in bms or blood in stools, no abd complaints; abd operations significant for hysterectomy and lysis of adhesions; last EGD and colonoscopy 2012, wnl; no asa or NSAID use; no tobacco use; no fmhx of GI malignancy or IBD. Review of Systems PHQ Score Initial Depression Screen Score: 0 SCORE ROS - Provider Constitutional: no fever, no sweats, no weight loss. Eyes: no glasses, no blurred vision, no visual loss. ENMT: no dentures, no hoarseness, no swallowing difficulties, no hearing loss, no ear infection(s),no nose bleeds. Cardiovascular: normal blood pressure, no chest pain, regular heartbeat, no heart murmur. Respiratory: no shortness of breath, no cough, no asthma, no wheezing. Gastrointestinal: no nausea, no vomiting, no diarrhea, no constipation, no blood in stool, no change in bowel habits, no abdominal pain, no hepatitis. Genitourinary: no kidney stones, no urine infection, no dysuria. Musculoskeletal: no pain, no weakness. Skin: no changing moles, no rash, no skin lumps. Neurologic: no seizures, no epilepsy, no headache. Psychiatric: no emotional or psychiatric problem. Heme/Lymph: no bleeding problems, no anemia, no blood clots, no transfusions. Allergy/Immunologic: no swollen lymph nodes/glands, no IV drug abuse. Other: Additional ROS info: Except as noted in the above Review of Systems and in the History of Present Illness, all other systems have been reviewed and are negative or noncontributory. Physical Exam Vitals & Measurements HR: 71(Peripheral) RR: 16 BP: 179/77 HT: 65 in HT: 165 cm WT: 77.8 kg WT: 171.519 lb BMI: 28.58 HEENT: normal conjunctiva, sclera clear, no scleral icterus, EOM intact, PERRLA, oral mucosa moist without lesions. Neck: trachea midline, no mass, symmetric, no thyromegaly or nodules, no adenopathy Respiratory: lungs CTA, respirations non labored. Cardiovascular: regular rate and rhythm, no murmur, no pedal edema or varicosities. Gastrointestinal: soft, non distended, no tenderness, no masses, no palpable hernias, diastasis recti no, no hepatosplenomegaly; normal bs Lymphatic: no cervical adenopathy, no supraclavicular adenopathy. Musculoskeletal: normal gait, digits and nails without infection, nodes, cyanosis, clubbing. Skin: no rashes, no lesions, no ulcers, no subcutaneous nodules, induration. Psychiatric/Neuro: oriented to time, place, person, judgement normal, affect appropriate for age, insight intact, no focal deficits. Tests: labs reviewed review of old records completed , Discussed surgical options, risks, and possible complications with patient. Assessment/Plan 1. Positive colorectal cancer screening using Cologuard test (R19.5: Other fecal abnormalities) plan colonoscopy under anesthesia for further evaluation, informed consent obtained. Follow-up No qualifying data available Problem List/Past Medical History Ongoing BMI 28.0-28.9,adult Dysphagia Feeling of incomplete bladder emptying Frequent urination Hiatal hernia History of kidney stones Incontinence without sensory awareness Microhematuria Nocturia Overweight Positive colorectal cancer screening using Cologuard test Post-void dribbling Stress incontinence Urethral stricture due to infection Urge incontinence Historical Abdominal tenderness MVP - Mitral valve prolapse Renal Calculus Procedure/Surgical History Colonoscopy (04/2012), EGD - esophagogastroduodenoscopy (04/2012), Appendectomy, Breast biopsy and related procedures, Cystoscopy, Lysis of adhesions, [facility] BSO - Total abdominal hysterectomy and bilateral salpingo-oophorectomy. Medications No active medications Allergies Cefuroxime Axetil (Unknown) Demerol HCl (unknown) Eggs (Sensitivity) Milk Products (Sensitivity) Nuts Versed (Vomiting) amoxicillin (Diarrhea) aspirin (excessive bleeding) erythromycin (Headache) Social History Alcohol - Denies Alcohol Use, 03/14/2013 Never., 04/23/2024 Substance Abuse - Denies Substance Abuse, 03/14/2013 Never., 04/23/2024 Tobacco - Denies Tobacco Use, 03/14/2013 Never (less than 100 in lifetime) Tobacco Use:. Never Smokeless Tobacco Use:., 04/28/2024 Family History Congenital heart disease: Father. Hypertension: Mother and Father. Immunizations Vaccine Date Status Comments influenza virus vaccine, inactivated - Not Given Patient Refuses SARS-CoV-2 (COVID-19) [id number].[id number] 11/06/2021 Recorded 2022-02-27: TPV65 SARSCoV2 mRNA(uaklzhoof-trpr-wwph (more content not included)...[facility] HospitalComment on above:Result Comment: Electronically Signed By: XAVI VARGAS, Jackson Jameson\Date and Time Signed: 04/28/24 09:59 [id number] Telephone encounter Note* Telephone Encounter - Tiffany Shepherd NP - 04/02/2024 2:28 PM EST PIPE TAYLOR - please notify patient that cologuard is positive, a referral will be placed to [facility] to further evaluation with formal colonoscopy. [facility] [id number] Miscellaneous Notes* Telephone Encounter - Tiffany Shepherd NP - 04/02/2024 2:28 PM EST PIPE TAYLOR - please notify patient that cologuard is positive, a referral will be placed to [facility] to further evaluation with formal colonoscopy. documented in this encounterNOWright Memorial [id number] Telephone encounter Note* Telephone Encounter - Ellen Casillas MD - 03/19/2024 8:31 AM EST Patient is due for MAWV Will order mammogram and cologaurd Please call pt to schedule MAWV and to notify that she needs to get her mammogram and cologaurd completed [facility] [id number] Miscellaneous Notes* Telephone Encounter - Ellen Casillas MD - 03/19/2024 8:31 AM EST Patient is due for MAWV Will order mammogram and cologaurd Please call pt to schedule MAWV and to notify that she needs to get her mammogram and cologaurd completed documented in this encounterNOMS HealthcareEvaluation + Plan note No data available for this section [facility] Future Appointments Appointment Date:05/15/2024 10:00:00 AM Scheduled Provider: Location:[facility] Appointment Type:Surgery [facility] General Surgery Reardan evaluation note* Diagnosis Encounter for screening mammogram for malignant neoplasm of breast- Primary Screening for colon cancer Special screening for malignant neoplasms, colon documented in this encounter [facility]* Diagnosis Positive colorectal cancer screening using Cologuard test- Primary documented in this encounter [facility] Healthcare[facility] note* Diagnosis Onset Date Resolution Status Admit Date Dysuria noneactive May 21 11:11am [facility] Work Phone: evaluation note* Diagnosis Rectal lesion- Primary [facility]* Diagnosis Rectal lesion- Primary [facility]* Diagnosis Rectal polyp- Primary Anal and rectal polyp documented [facility] encounter [facility]* Diagnosis Medicare annual wellness visit, subsequent- Primary Elevated blood pressure reading in office without diagnosis of hypertension Right sided abdominal pain Abdominal pain, unspecified site Rib pain on right side Other fatigue Chills (without fever) Other problems related to lifestyle BMI 29.0-29.9,adult Overweight documented in this encounter [facility] HealthcareEvaluation note* Diagnosis Positive urine culture- Primary Other nonspecific finding on examination of urine documented in this encounter [facility] instructions No data available for this section [facility] HospitalInstructionsNot on filedocumented in this encounter [facility]Not on filedocumented in this encounter [facility]* Pre-Procedure Instructions - Tosha Gutierrez RN - 07/14/2024 9:30 AM EDT Your surgery/procedure is scheduled at [facility] on 07/21/24 at 11 am Arrival Time 9 am [facility] Address: [address] [place] [address] in [address]ing lot located on [facility]. Report to the Entrance B. Check in at the information desk the surgery. The waiting room located on the second floor. If you have any questions prior to surgery, please call Pre-Admission Clinic at [phone] between 7:30 am and 4:30 pm Saturday through Saturday. If you have questions the morning of surgery, please call the Pre-op Department at [phone]. Notify your SURGEON if you develop any illness such as a cold, cough, fever, sore throat, vomiting or are hospitalized between now and your surgery. Medication Instructions (Do not stop your medications without consulting the prescribing physician). Take the following medications the morning of surgery with a sip of water: NONE Take inhalers as prescribed the morning of surgery. Due to the risk associated with these medications. If these medications are not held per instruction below, your surgery is at an increased risk for cancellation. SGLT2 Medications- Hold 3 days prior to surgery: Jardiance, Empagliflozin, Farxiga, Dapagliflozin, Invokana, Canagliflozin, Trijardy, Synjardy GLP-1 Medications (Injection or Pill)- If taken daily hold day of surgery. If taken weekly, hold 1 week prior to surgery: Adlyxin, Byetta, Bydureon, Ozempic, Rybelsus,Trulicity, Victoza, Wegovy, Lixisenatide, Exenatide, Semaglutide, Dulaglutide, Liraglutide GIP/GLP-1(Injection or Pill)- If taken daily hold day of surgery. If taken weekly, hold 1 week prior to surgery: Mounjaro . Blood thinners: Please contact your prescribing physician regarding a stop/hold date for these medications. Medications such as Coumadin, Heparin, Aspirin, Plavix, Eliquis, Pradaxa Diabetics: If you take insulin, contact your prescribing doctor for instructions on how to manage this the night before and the morning of surgery. Non-steriodal Anti-Inflammatory Drugs (NSAIDS)- Hold 3 days prior to surgery unless otherwise directed by your surgeon. Vitamins/Herbal Products: You may continue to take your prescribed vitamins such as potassium, iron, vitamin B, vitamin C, or multivitamin unless specifically instructed by your surgeon to hold. STOPtaking all herbal products/teas one week prior to your surgery. Marijuana: Stop marijuana 72 hours prior to surgery, stop CBD oil 48 hours prior to surgery. If you have been given bowel prep instructions by your surgeon, please call the surgeon's office with any questions about these instructions. What do I do the day of Surgery? Age 2 through adult - Stop all solids by midnight, You may have clear liquids up to 2 hours before surgery, unless otherwise instructed by your surgeon. Clear liquids are: water, sports drinks such as Gatorade or G2, or apple juice. You may NOT have: tube feedings, dairy products, alcoholic beverages, orange juice, or any liquids with solids or pulp in it. If applicable, shower again with CHG soap the morning of your surgery. In order to help prevent infection post-operatively, you may be asked to use a CHG mouthwash when you arrive to the Pre-op area. Your nurse will provide instruction the morning of. What do I need to do to prepare for surgery? If you will be going home the same day as your surgery, arrange for an adult over [address] Riding in a bus or taxi by yourself is not permitted. You should not smoke or drink alcohol 24 hours before your surgery. Alcohol thins the blood and may cause bleeding problems during surgery. Smoking increases the risk of breathing problems after surgery. Do not use lotions, creams, powders, perfume, make up, cologne or after-shaves day of surgery. Remove ALL jewelry including wedding rings, body piercings (including dermal piercing's, hair extensions that contain metal, nail bahamian, make-up, and contact lens. You may brush your teeth the morning of surgery, but do not swallow the water. Wear your dentures and partial plates to the hospital (no adhesive). Shower the night the before. If applicable, use the CHG (chlorhexidine gluconate) soap or wipes. Place clean linens on your bed after showering. Do not allow pets to sleep in your bed What should I bring to the hospital? Eyeglass or contact lens case If you will be spending the night, please bring personal care items and leave them in the car untilyou are taken to your room after surgery. Leave ALL valuables at home. If any of these instructions conflict with those you received from the surgeon, please seek clarification from your surgeon's office. DEEP BREATHING EXERCISES This exercise helps promote good air exchange and helps to prevent pneumonia after surgery. Breathe in slowly and deeply through the nose. Hold your breath for a few seconds and then exhale slowly through the mouth. Repeat this three times and then cough.Coughing helps to clear your lungs. If you have had a surgery with an incision into your abdomen or chest, press gently against your incision with a pillow or a folded blanket when you cough. Please be aware - it may not be menjivar to cough following some types of surgeries involving the eyes,ears, sinuses and throat. Always follow your doctor's instructions. LEG EXERCISE These exercises help promote good circulation and help to prevent blood clots after surgery. Point your toes to the ceiling and then point them to the wall. Do this slowly about 15-20 times. You may also move your feet in circles. Do the exercise that is most comfortable for you. If you have had surgery involving your shoulder or arm, we recommend you move your fingers. PRACTICING We ask that you begin practicing these exercises before your surgery. After surgery try to do both exercises at least every 2 hours during the day and early evening. Surgical Site Infection Prevention What is a Surgical Site Infection (SSI)? Infection can happen to the area of the body where surgery is done. This is called a surgical site infection (SSI). A SSI does not happen very often. What are some of the things that hospitals are doing to prevent SSIs? Soap and water or alcohol hand rub are used before and after caring for each patient. Special soap is used to clean surgery workers hands and arms just before the surgery. Masks, gowns, gloves and hair covers are worn during the surgery to keep the area clean. Hair in the surgery area may be removed with clippers (not razors). A special soap that kills germs is used to clean the skin at the surgery site. Antibiotics may be given before the surgery starts. What can you do to prevent SSIs? Before surgery: You may be asked to shower or bathe with a special soap that kills germs the night before and the day of surgery. Use the soap as you were told. Place clean sheets on your bed the night before surgery and do not allow your pets in your bed. If you smoke or vape, stop or cut down. This creates a stress response in your body that increases inflammation, constricts blood vessels and deprives your tissues of oxygen. After surgery, this stress response disrupts the travel of oxygen, nutrients, and blood to your surgical site, interfering with the wound healing process. It also decreases the ability of your cells to fight infection. Ask your doctor about ways to quit. If you have high blood sugars or diabetes please talk with your doctor about having healthy blood sugar levels to promote healing. Do not shave near where you will have surgery. Shaving can irritate the skin and make it easier to get and infection. After surgery: Be sure that the doctors and nurses clean their hands before and after touching you. Be sure your family and friends clean their hands before and after visiting you. Do not be afraid to remind them. Always wash your hands before touching your incisional area. * Care for your wound at home as told by your doctor or nurse * Call your doctor right away if you have fever, redness, increased pain, or drainage at the surgery site. Can SSIs be treated? Antibiotics are used to treat SSI. Some patients may need another surgery to treat the infection. The doctor will discuss treatment options with you. Further questions? Contact the doctor, nurse or the Infection Prevention and Control department if you have any questions. PATIENT RIGHTS AND RESPONSIBILITIES As a patient at [facility], you have the right to: Receive medical care and be informed of who is taking care of you Be treated with dignity and respect Have a family member/senior sales representative of choice and your physician notified of your admission Receive information and actively participate in decisions about your care and treatment Refuse care, treatment and services Decide who may provide your support and speak for you Access jain and spiritual services Participate in ethical issues and questions about your care Receive private and confidential care Have appropriate assessment and management of your pain Know guest visitation restrictions or limitations Have an advance directive Access protective services Consent or refuse to participate in research studies or production or recordings, films or other images Have resolution of your complaints Receive information of hospital charges and payment methods Patient/patient senior sales representative responsibilities are to: Provide information about health status to facilitate care, treatment and services Follow the treatment, plan, keep appointments and speak up when you do not understand the plan Respect the rights of other patients and healthcare personnel Follow organizational rules and regulations that support quality care and a safe environment Fulfill financial obligations as promptly as possible [facility]ructions[facility] on filedocumented in this encounter [facility] SystemInstructionsNot on filedocumented in this encounter [facility] SystemInstructionsNot on filedocumented in this encounter [facility] Pre-Procedure Instructions - Tosha Gutierrez RN - 07/14/2024 9:30 AM EDT Your surgery/procedure is scheduled at [facility] on 07/21/24 at 11 am Arrival Time 9 am [facility] Address: [address] [place] [address] Park in [address] Parking lot located on [facility]. Report to the Entrance B. Check in at the information desk the surgery. The waiting room located on the second floor. If you have any questions prior to surgery, please call Pre-Admission Clinic at [phone] between 7:30 am and 4:30 pm Saturday through Saturday. If you have questions the morning of surgery, please call the Pre-op Department at [phone]. Notify your SURGEON if you develop any illness such as a cold, cough, fever, sore throat, vomiting or are hospitalized between now and your surgery. Medication Instructions (Do not stop your medications without consulting the prescribing physician). Take the following medications the morning of surgery with a sip of water: NONE Take inhalers as prescribed the morning of surgery. Due to the risk associated with these medications. If these medications are not held per instruction below, your surgery is at an increased risk for cancellation. SGLT2 Medications- Hold 3 days prior to surgery: Jardiance, Empagliflozin, Farxiga, Dapagliflozin, Invokana, Canagliflozin, Trijardy, Synjardy GLP-1 Medications (Injection or Pill)- If taken daily hold day of surgery. If taken weekly, hold 1 week prior to surgery: Adlyxin, Byetta, Bydureon, Ozempic, Rybelsus,Trulicity, Victoza, Wegovy, Lixisenatide, Exenatide, Semaglutide, Dulaglutide, Liraglutide GIP/GLP-1(Injection or Pill)- If taken daily hold day of surgery. If taken weekly, hold 1 week prior to surgery: Mounjaro . Blood thinners: Please contact your prescribing physician regarding a stop/hold date for these medications. Medications such as Coumadin, Heparin, Aspirin, Plavix, Eliquis, Pradaxa Diabetics: If you take insulin, contact your prescribing doctor for instructions on how to manage this the night before and the morning of surgery. Non-steriodal Anti-Inflammatory Drugs (NSAIDS)- Hold 3 days prior to surgery unless otherwise directed by your surgeon. Vitamins/Herbal Products: You may continue to take your prescribed vitamins such as potassium, iron, vitamin B, vitamin C, or multivitamin unless specifically instructed by your surgeon to hold. STOPtaking all herbal products/teas one week prior to your surgery. Marijuana: Stop marijuana 72 hours prior to surgery, stop CBD oil 48 hours prior to surgery. If you have been given bowel prep instructions by your surgeon, please call the surgeon's office with any questions about these instructions. What do I do the day of Surgery? Age 2 through adult - Stop all solids by midnight, You may have clear liquids up to 2 hours before surgery, unless otherwise instructed by your surgeon. Clear liquids are: water, sports drinks such as Gatorade or G2, or apple juice. You may NOT have: tube feedings, dairy products, alcoholic beverages, orange juice, or any liquids with solids or pulp in it. If applicable, shower again with CHG soap the morning of your surgery. In order to help prevent infection post-operatively, you may be asked to use a CHG mouthwash when you arrive to the Pre-op area. Your nurse will provide instruction the morning of. What do I need to do to prepare for surgery? If you will be going home the same day as your surgery, arrange for an adult over [address] Riding in a bus or taxi by yourself is not permitted. You should not smoke or drink alcohol 24 hours before your surgery. Alcohol thins the blood and may cause bleeding problems during surgery. Smoking increases the risk of breathing problems after surgery. Do not use lotions, creams, powders, perfume, make up, cologne or after-shaves day of surgery. Remove ALL jewelry including wedding rings, body piercings (including dermal piercing's, hair extensions that contain metal, nail bahamian, make-up, and contact lens. You may brush your teeth the morning of surgery, but do not swallow the water. Wear your dentures and partial plates to the hospital (no adhesive). Shower the night the before. If applicable, use the CHG (chlorhexidine gluconate) soap or wipes. Place clean linens on your bed after showering. Do not allow pets to sleep in your bed What should I bring to the hospital? Eyeglass or contact lens case If you will be spending the night, please bring personal care items and leave them in the car untilyou are taken to your room after surgery. Leave ALL valuables at home. If any of these instructions conflict with those you received from the surgeon, please seek clarification from your surgeon's office. DEEP BREATHING EXERCISES This exercise helps promote good air exchange and helps to prevent pneumonia after surgery. Breathe in slowly and deeply through the nose. Hold your breath for a few seconds and then exhale slowly through the mouth. Repeat this three times and then cough.Coughing helps to clear your lungs. If you have had a surgery with an incision into your abdomen or chest, press gently against your incision with a pillow or a folded blanket when you cough. Please be aware - it may not be menjivar to cough following some types of surgeries involving the eyes,ears, sinuses and throat. Always follow your doctor's instructions. LEG EXERCISE These exercises help promote good circulation and help to prevent blood clots after surgery. Point your toes to the ceiling and then point them to the wall. Do this slowly about 15-20 times. You may also move your feet in circles. Do the exercise that is most comfortable for you. If you have had surgery involving your shoulder or arm, we recommend you move your fingers. PRACTICING We ask that you begin practicing these exercises before your surgery. After surgery try to do both exercises at least every 2 hours during the day and early evening. Surgical Site Infection Prevention What is a Surgical Site Infection (SSI)? Infection can happen to the area of the body where surgery is done. This is called a surgical site infection (SSI). A SSI does not happen very often. What are some of the things that hospitals are doing to prevent SSIs? Soap and water or alcohol hand rub are used before and after caring for each patient. Special soap is used to clean surgery workers hands and arms just before the surgery. Masks, gowns, gloves and hair covers are worn during the surgery to keep the area clean. Hair in the surgery area may be removed with clippers (not razors). A special soap that kills germs is used to clean the skin at the surgery site. Antibiotics may be given before the surgery starts. What can you do to prevent SSIs? Before surgery: You may be asked to shower or bathe with a special soap that kills germs the night before and the day of surgery. Use the soap as you were told. Place clean sheets on your bed the night before surgery and do not allow your pets in your bed. If you smoke or vape, stop or cut down. This creates a stress response in your body that increases inflammation, constricts blood vessels and deprives your tissues of oxygen. After surgery, this stress response disrupts the travel of oxygen, nutrients, and blood to your surgical site, interfering with the wound healing process. It also decreases the ability of your cells to fight infection. Ask your doctor about ways to quit. If you have high blood sugars or diabetes please talk with your doctor about having healthy blood sugar levels to promote healing. Do not shave near where you will have surgery. Shaving can irritate the skin and make it easier to get and infection. After surgery: Be sure that the doctors and nurses clean their hands before and after touching you. Be sure your family and friends clean their hands before and after visiting you. Do not be afraid to remind them. Always wash your hands before touching your incisional area. * Care for your wound at home as told by your doctor or nurse * Call your doctor right away if you have fever, redness, increased pain, or drainage at the surgery site. Can SSIs be treated? Antibiotics are used to treat SSI. Some patients may need another surgery to treat the infection. The doctor will discuss treatment options with you. Further questions? Contact the doctor, nurse or the Infection Prevention and Control department if you have any questions. PATIENT RIGHTS AND RESPONSIBILITIES As a patient at [facility], you have the right to: Receive medical care and be informed of who is taking care of you Be treated with dignity and respect Have a family member/senior sales representative of choice and your physician notified of your admission Receive information and actively participate in decisions about your care and treatment Refuse care, treatment and services Decide who may provide your support and speak for you Access jain and spiritual services Participate in ethical issues and questions about your care Receive private and confidential care Have appropriate assessment and management of your pain Know guest visitation restrictions or limitations Have an advance directive Access protective services Consent or refuse to participate in research studies or production or recordings, films or other images Have resolution of your complaints Receive information of hospital charges and payment methods Patient/patient senior sales representative responsibilities are to: Provide information about health status to facilitate care, treatment and services Follow the treatment, plan, keep appointments and speak up when you do not understand the plan Respect the rights of other patients and healthcare personnel Follow organizational rules and regulations that support quality care and a safe environment Fulfill financial obligations as promptly as possible documented in this [facility] SystemProgress note No data available for this section [facility] Summary Purpose Family History No Family History Records Found No data available for this section No Family History Records FoundNo Family History Records FoundNo Family History Records FoundNo Family History Records FoundNo Family History Records FoundNo Family History Records Found Advance Directives Advance Directive Response Recorded Date/ Time Advance Directives No May 10 4:37pm Chief Complaint and Reason for Visit Chief Complaint Admit Date Urinary frequency, dysuria May 21 11:11am Reason for Visit Admit Date Acute cystitis with hematuria April 11:11am Dysuria May 21, 2024 11: 11am Rectal itching May 21, 2024 11: 11am Reason for Visit Admit Date Dysuria May 21, 2024 11: 11am Additional Source Comments INFORMATION SOURCE (unrecogn ized section and content) DATE CREATED AUTHOR 05/02/2021 [facility] DATE CREATED AUTHOR AUTHOR'S ORGANIZ ATION 05/19/2024 [facility] DATE CREATED AUTHOR AUTHOR'S ORGANIZ ATION 05/20/2024 [facility] DATE CREATED AUTHOR AUTHOR'S ORGANIZ ATION 05/24/2024 [facility] DATE CREATED AUTHOR AUTHOR'S ORGANIZ ATION 05/27/2024 [facility] DATE CREATED AUTHOR AUTHOR'S ORGANIZ ATION 07/31/2024 [facility] DATE CREATED AUTHOR AUTHOR'S ORGANIZ ATION 09/17/2024 [facility] EPIC Patient Care team informatio n (unrecognized section and content) Biometric Screener Relationship Specialty Start Date End Date Meghann Chung MD [address] [place] [id number] PCP - ACO Reach 07/19/22 Ellen Casillas MD [address] [place] [address] PCP - General Family Medicine 07/03/22 Biometric Screener Relationship Specialty Start Date End Date Meghann Chung MD [address] [place] [id number] PCP - ACO Reach 07/19/22 Ellen Casillas MD [address] [place] [address] PCP - General Family Medicine 07/03/22 Team Status: Active Member Role Status Dates Ellen Casillas MD Primary Care Provider Active Team Status: Inactive Member Role Status Dates Stephanie Sheffield APRN Attending Provider Active Start: May 21, 2024 End: May 21, 2024 Ellen Casillas MD Primary Care Provider Active Start: May 21, 2024 End: May 21, 2024 Team Status: Inactive Member Role Status Dates Stephanie Sheffield APRN Attending Provider Active Start: May 21, 2024 End: May 21, 2024 Biometric Screener Relationship Specialty Start Date End Date Ellen Casillas MD [address] [place] [address] PCP - General Family Medicine 07/03/22 Ellen Casillas MD [address] [place] [address] PCP - ACO Reach 04/03/24 Biometric Screener Relationship Specialty Start Date End Date Ellen Casillas MD [address] [place] [address] PCP - General Family Medicine 07/03/22 Ellen Casillas MD [address] [place] [address] PCP - ACO Reach 04/03/24 Biometric Screener Relationship Specialty Start Date End Date Ellen Casillas MD [address] [place] [address] PCP - General Family Medicine 07/03/22 Ellen Casillas MD [address] [place] [address] PCP - ACO Reach 04/03/24 Reason for Visit (unrecogniz ed section and content) Reason Onset Date Comments Results 04/02/2024 Reason Comments New Patient Referral for polyp Reason Comments Back Pain Medicare Annual Wellness Visit Subsequen t Reason Onset Date Comments Results 09/22/2024 Goals (unrecognized section and content) Goals may be documented in a n alternate section FOR RECORDS PERTAINING TO PATIENTS WHO ARE OR HAVE BEEN ENROLLED IN A CHEMICAL DEPENDENCY/SUBSTANCEABUSE PROGRAM, SOME INFORMATION MAY BE OMITTED. This clinical summary was aggregated from multiple sources. Caution should be exercised in using it in the provision of clinical care. This summary normalizes information from multiple sources, and as a consequence, information in this document may materially change the coding, format and clinical context of patient data. In addition, data may be omitted in some cases. CLINICAL DECISIONS SHOULD BE BASED ON THE PRIMARY CLINICAL RECORDS. [employer] provides no warranty or guarantee of the accuracy or completeness of information in this document.
== END 2024-10-19 07:58 | disposition home or self-care (01) ==
LOC: MAMMO 07:57
PROVIDERS: PCP Student in an Organized Health Care Education/Training Program
DX: Z12.31 Encounter for screening mammogram for malignant neoplasm of breast (principal)
CPT/HCPCS: 77063; 77067